=== PATIENT | female | born 1980 | race Hispanic/Latino ===

== ENCOUNTER 2020-09-19 08:25 | Emergency (ER) | payer SELFPAY ==
[2020-09-19] MEDS ORDERED: PROMETHAZINE HCL 25 MG/ML 1ML AMPULE IM ONE (08:26)
[2020-09-19] MEDS ORDERED: ACETAMINOPHEN EXTRA STRENGTH 500 MG TABLET ONE ×2 (09:39→17:06)
[2020-09-19 09:42] LABS: APPEARANCE,URINE Clear (CLEAR); BILIRUBIN,URINE Negative (NEGATIVE); COLOR,URINE Dark Yellow (YELLOW); GLUCOSE, URINE (UA) Negative (NEGATIVE); KETONES,URINE 15 mg/dL (NEGATIVE); LEUKOCYTE ESTERASE ,URINE Negative (NEGATIVE); NITRATE,URINE Negative (NEGATIVE); OCCULT BLOOD,URINE Moderate (NEGATIVE); PROTEIN,URINE POS 1+ mg/dL (NEGATIVE)
[2020-09-19] MEDS ORDERED: SODIUM CHLORIDE 0.9% 1000ML 1,000 ML IV ONE (09:42)
[2020-09-19 09:59] LABS: BACTERIA,URINE Moderate /HPF (None Seen)
[2020-09-19 10:01] LABS: BASOPHILS % (AUTO) 0.3 % (0.0-5.0); HEMATOCRIT 32.1 % (36-48); LYMPHOCYTES % (AUTO) 7.3 % (21.0-51.0); MEAN CORPUSCULAR HEMOGLOBIN 26.3 pg (27.0-33.0); MEAN CORPUSCULAR HGB CONC 32.4 g/dL (32.0-36.0); MEAN CORPUSCULAR VOLUME 81.3 fL (79-99); MONOCYTES % (AUTO) 5.4 % (3.0-13.0); NEUTROPHILS % (AUTO) 85.4 % (40.0-77.0); PLATELET COUNT (AUTO) 229 K/uL (130-400); RED BLOOD CELL COUNT(AUTO) 3.95 MIL/uL (4.00-5.50); RED CELL DISTRIBUTION WIDTH 12.6 % (11.0-15.5)
[2020-09-19 10:13] LABS: CREATININE 0.8 mg/dL (0.5-1.5); POTASSIUM 3.4 mmol/L (3.5-5.1)
[2020-09-19 10:18] LABS: ALBUMIN 3.4 g/dL (3.5-5.0); BILIRUBIN,TOTAL 0.6 mg/dL (0.2-1.0); TOTAL PROTEIN, SERUM 8.1 g/dL (6.0-8.3)
[2020-09-19] MEDS ORDERED: KETOROLAC TROMETHAMINE 30MG/ML ONE (11:11)
[2020-09-19] MEDS ORDERED: MECLIZINE HCL 25 MG TABLET ONE (11:11)
[2020-09-19] MEDS ORDERED: METHYLPREDNISOLONE SOD SUCC 125MG/2ML VIAL ONE (12:54)
== END 2020-09-19 17:12 | disposition home or self-care (01) ==
LOC: EDH 08:25
DX: A88.1 Epidemic vertigo (principal); B34.9 Viral infection, unspecified; Z20.828 Contact with and (suspected) exposure to other viral communicable diseases
CPT/HCPCS: 36415; 70450; 80053; 81001; 81025; 82550; 83605; 85025; 87088; 87426; 87804 ×2; 96361; 96365; 96375; 99285; J1885; J2550; J2930; J7030; U0003

== ENCOUNTER 2020-09-24 08:45 | Emergency (ER) | payer SELFPAY ==
[2020-09-24 09:19] LABS: BASOPHILS % (AUTO) 0.3 % (0.0-5.0); HEMATOCRIT 26.9 % (36-48); LYMPHOCYTES % (AUTO) 28.3 % (21.0-51.0); MEAN CORPUSCULAR HEMOGLOBIN 26.3 pg (27.0-33.0); MEAN CORPUSCULAR HGB CONC 33.5 g/dL (32.0-36.0); MEAN CORPUSCULAR VOLUME 78.7 fL (79-99); MONOCYTES % (AUTO) 5.7 % (3.0-13.0); NEUTROPHILS % (AUTO) 61.6 % (40.0-77.0); PLATELET COUNT (AUTO) 161 K/uL (130-400); RED BLOOD CELL COUNT(AUTO) 3.42 MIL/uL (4.00-5.50); RED CELL DISTRIBUTION WIDTH 13.6 % (11.0-15.5); WHITE BLOOD COUNT (AUTO) 6.3 K/uL (4.8-10.8)
[2020-09-24] MEDS ORDERED: SODIUM CHLORIDE 0.9% 1000ML 1,000 ML IV ONE ×2 (09:21→10:34)
[2020-09-24] MEDS ORDERED: ACETAMINOPHEN EXTRA STRENGTH 500 MG TABLET ONE (09:21)
[2020-09-24 09:37] LABS: APPEARANCE,URINE Clear (CLEAR); BILIRUBIN,URINE Negative (NEGATIVE); COLOR,URINE Dark Yellow (YELLOW); GLUCOSE, URINE (UA) Negative (NEGATIVE); KETONES,URINE >=80 mg/dL (NEGATIVE); LEUKOCYTE ESTERASE ,URINE Small (NEGATIVE); NITRATE,URINE Negative (NEGATIVE); OCCULT BLOOD,URINE Large (NEGATIVE); PROTEIN,URINE POS 2+ mg/dL (NEGATIVE)
[2020-09-24 09:40] LABS: ALBUMIN 2.6 g/dL (3.5-5.0); BILIRUBIN,TOTAL 0.7 mg/dL (0.2-1.0); CREATININE 0.7 mg/dL (0.5-1.5); TOTAL PROTEIN, SERUM 7.5 g/dL (6.0-8.3)
[2020-09-24 09:41] LABS: POTASSIUM 2.9 mmol/L (3.5-5.1)
[2020-09-24 09:50] LABS: BACTERIA,URINE Rare /HPF (None Seen); SQUAMOUS EPITHELIAL CELL,UR Rare /HPF (0-2)
[2020-09-24] MEDS ORDERED: POTASSIUM BICARB/CIT AC 25 MEQ TABLET.EFF ONE (09:56)
[2020-09-24 10:49] LABS: AMPHET/METH SCREEN,URINE NEGATIVE (NEGATIVE); BARBITURATE SCREEN, URINE NEGATIVE (NEGATIVE); BENZODIAZEPINES SCREEN,URINE NEGATIVE (NEGATIVE); CANNABINOID SCREEN,URINE NEGATIVE (NEGATIVE); COCAINE SCREEN,URINE NEGATIVE (NEGATIVE); OPIATE SCREEN,URINE NEGATIVE (NEGATIVE); PHENCYCLIDINE SCREEN,URINE NEGATIVE (NEGATIVE)
== END 2020-09-24 15:57 | disposition home or self-care (01) ==
LOC: EDH 08:45
DX: R11.0 Nausea (principal); R50.9 Fever, unspecified; Z79.899 Other long term (current) drug therapy
CPT/HCPCS: 36415; 76700; 80053; 80305; 81001; 84702; 85025; 87040 ×2; 87088; 96360; 96361; 99284; J7030 ×2

== ENCOUNTER 2022-12-29 19:34 | Emergency (ER) | payer OTHER ==
[~2022-12-29] VITALS: Ht 157.5 cm; Wt 76.2 kg
[2022-12-29 20:38] LABS: BASOPHILS % (AUTO) 0.5 % (0.0-5.0); EOSINOPHILS % (AUTO) 1.1 % (0.0-8.0); HEMATOCRIT 30.5 % (36-48); LYMPHOCYTES % (AUTO) 25.9 % (21.0-51.0); MEAN CORPUSCULAR HEMOGLOBIN 18.2 pg (27.0-33.0); MEAN CORPUSCULAR HGB CONC 27.9 g/dL (32.0-36.0); MEAN CORPUSCULAR VOLUME 65.3 fL (79-99); MONOCYTES % (AUTO) 6.9 % (3.0-13.0); NEUTROPHILS % (AUTO) 65.3 % (40.0-77.0); PLATELET COUNT (AUTO) 464 K/uL (130-400); RED BLOOD CELL COUNT(AUTO) 4.67 MIL/uL (4.00-5.50); RED CELL DISTRIBUTION WIDTH 19.9 % (11.0-15.5); WHITE BLOOD COUNT (AUTO) 8.8 K/uL (4.8-10.8)
[2022-12-29 20:39] LABS: APPEARANCE,URINE CLEAR (CLEAR); BILIRUBIN,URINE NEGATIVE (NEGATIVE); COLOR,URINE COLORLESS (YELLOW); GLUCOSE, URINE (UA) NEGATIVE (NEGATIVE); KETONES,URINE NEGATIVE (NEGATIVE); LEUKOCYTE ESTERASE ,URINE 250 Leu/uL (NEGATIVE); NITRATE,URINE NEGATIVE (NEGATIVE); PH,URINE 6.5 (5.0-8.0); PROTEIN,URINE NEGATIVE (NEGATIVE); UROBILINOGEN,URINE 0.2 mg/dL (0.2-1.0)
[2022-12-29 20:43] LABS: BACTERIA,URINE RARE /HPF (None Seen); SQUAMOUS EPITHELIAL CELL,UR FEW /HPF (0-2)
[2022-12-29 20:44] LABS: HCG,QUALITATIVE URINE NEGATIVE (NEGATIVE)
[2022-12-29 20:48] LABS: CREATININE 0.5 mg/dL (0.5-1.5); POTASSIUM 3.8 mmol/L (3.5-5.1)
[2022-12-29 20:52] LABS: ALBUMIN 3.7 g/dL (3.5-5.0); TOTAL PROTEIN, SERUM 8.2 g/dL (6.0-8.3)
[2022-12-29] MEDS ORDERED: KETOROLAC 30MG VIAL (30MG/ML) IM ONE (22:00)
[2022-12-29] MEDS ORDERED: CEPH500B PO (23:08)
[2022-12-29] MEDS ORDERED: TAMS-1 PO (23:08)
[2022-12-29] MEDS ORDERED: ONDANSETRON 4MG INJ IVP ONE (23:30)
[2022-12-29] MEDS ORDERED: CEFTRIAXONE 1G VIAL IVP ONE (23:30)
[2022-12-29] MEDS ORDERED: MORPHINE 4 MG SYG IM ONE (23:30)
[2022-12-29 23:42] VITALS: BP 137/85
== END 2022-12-29 23:55 | disposition home or self-care (01) ==
LOC: EDH 19:34
DX: N28.1 Cyst of kidney, acquired (principal); N39.0 Urinary tract infection, site not specified; N20.0 Calculus of kidney
CPT/HCPCS: 99285; 74176; 96374; 96375; 80053; 85025; 87088; 81001; 81025; 36415; 96372 ×2; J0696; J2405; J2270; J1885

== ENCOUNTER 2025-11-05 02:54 | Inpatient (IN) | payer BC, OTHER ==
[~2025-11-05] VITALS: Ht 157.5 cm; Wt 73.0 kg
--- NOTE | 2025-11-05 03:19 | ERN ---
ED Note History of Present Illness Stated Complaint: ABD PAIN Chief Complaint: Abdominal Pain Time Seen by MD: 02:57 Dictation: This is a 45-year-old female who presented to the emergency room with complaints of right flank pain that started about an hour prior to the presentation. Apparently she began experiencing pain which was radiating to the right upper abdomen as well as lower abdomen from the flank area. Had similar pain before when she was told she had kidney stones. She denied any hematuria. She did admit to nausea but no diarrhea. Her last BM was an hour prior to the presentation. No vomitings. No reflux symptoms. She took Tylenol at 2:00 a.m .. She reports having a EGD and colonoscopy on 11/02/2025 in the only thing they found was hemorrhoids. Temperature 97.6 pulse 69 respirations 20 blood pressure 168/80 with a pulse oximetry of 100% on room air Allergies: Coded Allergies: morphine (Unverified Allergy, Unknown, HIVES, 11/05/25) Home Meds Active Scripts Tamsulosin HCl (Flomax) 0.4 Mg Cap.er.24h, 0.4 MG PO DAILY for 30 Days, #45 CAPSULE. Prov:SUNITA FARLEY 12/29/22 Cephalexin Monohydrate (Keflex) 500 Mg Cap, 500 MG PO QID for 7 Days, #28 CAP Prov:SUNITA FARLEY 12/29/22 Past Medical History Past Medical History: No Pertinent History Surgical History: None Family History: Negative LMP: Oct 30, 2025 RN Note Reviewed/Agreed w/PFSH: Yes Review of System Dictation Constitutional: Negative for fever,chills, and weight loss Eyes: Negative for injury, pain,redness, and discharge ENT: Negative for injury,pain or swelling Cardiovascular: Negative for chest pain, palpitations, and edema Respiratory: Negative for shortness of breath, cough, and wheezing, Abdomen/GI: Negative for abdominal pain, nausea, vomiting, diarrhea, and constipation Back: Negative for injury and pain positive for right flank pain : Negative for injury, bleeding and discharge MS/Extremity: Negative for injury and deformity Skin: Negative for rash, and discoloration Neuro: Negative for headache, weakness, numbness, tingling, and seizure Psych: Negative for suicide ideation, homicidal ideation, and hallucinations Initial Vital Sign VS Vital Signs Date Time Temp Pulse Resp B/P (MAP) Pulse Ox O2 Delivery O2 Flow Rate FiO2 11/05/25 02:55 97.5 69 20 168/80 100 Room Air 11/05/25 03:07 0 21 Physical Exam Dictation General: awake, alert, NAD Head/Face: Normocephalic, atraumatic Eyes: PERRL, EOMI, vision at baseline ENT: oral cavity clear, TMs clear, no signs of infection Neck: Trachea midline, supple, no nuchal rigidity Cardiovascular: RRR, normal S1/S2, No MRGs, no JVD Respiratory: CTAB, no respiratory distress, No rales or wheezes Abdomen: Soft, non-tender, non-distended, normal bowel sounds, no guarding or rebound. Skin: Warm, dry, normal turgor, no rash MS/Extremity: Pulses equal, no cyanosis, neurovascular intact, FROM Neuro: COAx4, GCS 15, strength 5/5, CN 2-12 intact, normal cerebellar exam, normal gait, Psych: Normal behavior, mood, and affect normal Extremities-trace edema without any palpable cords, Homans sign is negative Results (Laboratory/Radiology) Laboratory/Radiology Laboratory Tests Test 11/05/25 03:35 11/05/25 03:45 11/05/25 05:20 White Blood Count 9.6 K/uL (4.8-10.8) Red Blood Count 3.31 MIL/uL (4.00-5.50) L Hemoglobin 6.5 g/dL (12.0-16.0) *L Hematocrit 22.7 % (36-48) L Mean Corpuscular Volume 68.6 fL (79-99) L Mean Corpuscular Hemoglobin 19.6 pg (27.0-33.0) L Mean Corpuscular Hemoglobin Concent 28.6 g/dL (32.0-36.0) L Red Cell Distribution Width 17.3 % (11.0-15.5) H Platelet Count 496 K/uL (130-400) H Mean Platelet Volume 9.4 fL (7.5-10.5) Immature Granulocyte % (Auto) 0.6 % (0-1) Neutrophils (%) (Auto) 68.9 % (40.0-77.0) Lymphocytes (%) (Auto) 21.5 % (21.0-51.0) Monocytes (%) (Auto) 7.4 % (3.0-13.0) Eosinophils (%) (Auto) 1.3 % (0.0-8.0) Basophils (%) (Auto) 0.3 % (0.0-5.0) Neutrophils # (Auto) 6.6 K/uL (1.8-7.7) Lymphocytes # (Auto) 2.1 K/uL (1.0-4.8) Monocytes # (Auto) 0.7 K/uL (0.1-1.0) Eosinophils # (Auto) 0.12 K/uL (0.00-0.70) Basophils # (Auto) 0.03 K/uL (0.00-0.20) Absolute Immature Granulocyte (auto 0.06 K/uL (0-1) Nucleated Red Blood Cells 0.0 % (0.0-0.19) Red Blood Cell Morphology See comments Sodium Level 139 mmol/L (136-145) Potassium Level 3.8 mmol/L (3.5-5.1) Chloride Level 104 mmol/L (101-111) Carbon Dioxide Level 23 mmol/L (21-32) Blood Urea Nitrogen 12 mg/dL (7-18) Creatinine 0.8 mg/dL (0.5-1.0) Glomerular Filtration Rate Calc 91 mL/min (>90) Random Glucose 113 mg/dL (70-105) H Total Calcium 8.6 mg/dL (8.5-10.1) Lipase 36 U/L (16-77) Urine Color LIGHT-YELLOW (YELLOW) Urine Appearance CLOUDY (CLEAR) H Urine pH 6.5 (5.0-8.0) Urine Specific [place] 1.021 (1.001-1.031) Urine Protein 20 mg/dL (NEGATIVE) H Urine Glucose (UA) NEGATIVE mg/dL (NEGATIVE) Urine Ketones NEGATIVE mg/dL (NEGATIVE) Urine Occult Blood LARGE (NEGATIVE) H Urine Nitrate NEGATIVE (NEGATIVE) Urine Bilirubin NEGATIVE mg/dL (NEGATIVE) Urine Urobilinogen 0.2 mg/dL (0.2-1.0) Urine Leukocyte Esterase 25 Varun/uL (NEGATIVE) H Urine RBC TNTC /HPF (0-1) H Urine WBC 6-10 /HPF (0-1) H Urine Squamous Epithelial Cells FEW /HPF (0-2) Urine Bacteria RARE /HPF (None Seen) Urine HCG, Qualitative NEGATIVE (NEGATIVE) Prothrombin Time 10.8 SEC (9.6-11.6) Prothromb Time International Ratio 1.02 (0.85-1.15) Activated Partial Thromboplast Time 23.1 SEC (26.3-35.5) L Labs Reviewed?: Yes ED Course ED Course Orders Procedure Category Date Status Time Vital Signs Per CPOE 11/05/25 Transmitted Routine 03:16 Saline Lock Iv CPOE 11/05/25 Transmitted 03:16 Cbc With Differential LAB 11/05/25 Complete 03:16 Lipase LAB 11/05/25 Complete 03:16 Urinalysis Profile LAB 11/05/25 Complete 03:16 Basic Metabolic Panel LAB 11/05/25 Complete 03:16 ,Urine Test LAB 11/05/25 Complete 03:16 0.9%Nacl 1000ml (Ns PHA 11/05/25 Complete 1000ml) 03:30 Ketorolac PHA 11/05/25 Complete Tromethamine 30mg/Ml 03:30 Ondansetron 4mg Inj PHA 11/05/25 Complete (Zofran 4mg Inj) 03:30 Culture Urine CIERRA 11/05/25 In Process 04:19 Morphine 4mg Syg PHA 11/05/25 Complete (Morphine 4mg Syg) 05:00 Pantoprazole 40mg Inj PHA 11/05/25 Complete (Protonix 40mg Inj 05:00 Type And Screen BBK 11/05/25 In Process 04:33 Hydromorphone 0.5mg PHA 11/05/25 Complete Syg (Dilaudid 0.5mg 05:00 Ct Abd/Pel Wo Con CT 11/05/25 Taken Renal/Appy 04:40 Edm Admit Bridge Order ADM 11/05/25 Transmitted 04:55 Ceftriaxone 1g Vial PHA 11/05/25 Complete (Rocephine 1g Inj) 05:00 Admit Orders ADM 11/05/25 Transmitted 05:46 Occult Blood Stool LAB 11/05/25 Logged Single Only 05:49 Iron Panel With %Sat LAB 11/05/25 In Process 05:49 Iron Serum LAB 11/05/25 In Process 05:49 Reticulocyte Count LAB 11/05/25 Logged Automated 05:49 Pathology Smear Review LAB 11/05/25 Logged 05:49 Gastroenterology CONPHYSVC 11/05/25 Transmitted Consult 08:00 Pt And Ptt LAB 11/05/25 Complete 05:50 Magnesium LAB 11/05/25 In Process 05:50 Phosphorus LAB 11/05/25 In Process 05:50 Basic Metabolic Panel LAB 11/06/25 Verified 04:00 Cbc With Differential LAB 11/06/25 Verified 04:00 Hemoglobin And LAB 11/05/25 Logged Hematocrit 09:30 Hemoglobin And LAB 11/05/25 Logged Hematocrit 15:30 Hemoglobin And LAB 11/05/25 Logged Hematocrit 21:30 Hemoglobin And LAB 11/06/25 Verified Hematocrit 03:30 Hemoglobin And LAB 11/06/25 Verified Hematocrit 09:30 Activity: Ad Christianne CPOE 11/05/25 Transmitted 05:50 Apply Knee High Teds CPOE 11/05/25 Transmitted 05:50 Apply Scds CPOE 11/05/25 Transmitted 05:50 Condition: CPOE 11/05/25 Transmitted 05:50 I&O Q Shift CPOE 11/05/25 Transmitted 05:50 Npo Except For Meds CPOE 11/05/25 Transmitted 05:50 Nurse To Enter Home CPOE 11/05/25 Transmitted Medication 05:50 Oxygen By Nc/Pulse Ox CPOE 11/05/25 Transmitted 05:50 Telemetry Monitoring CPOE 11/05/25 Transmitted 05:50 Vital Signs(Adult CPOE 11/05/25 Transmitted Hospitalist) 05:50 Advance Diet As CPOE 11/05/25 Transmitted Tolerated To: 05:50 0.9%Nacl 1000ml (Ns PHA 11/05/25 In Process 1000ml) 06:00 Acetaminophen 325 Tab PHA 11/05/25 In Process (Tylenol 325mg Tab 06:00 Hydralazine 20mg Inj PHA 11/05/25 In Process (Apresoline 20mg In 06:00 Lactulose 20 Gm/30 Ml PHA 11/05/25 In Process Udcup (Constulose 06:00 Morphine 4mg Syg PHA 11/05/25 In Process (Morphine 4mg Syg) 06:00 Ondansetron 4mg Inj PHA 11/05/25 In Process (Zofran 4mg Inj) 06:00 Ceftriaxone 1g Vial PHA 11/06/25 In Process (Rocephine 1g Inj) 09:00 12 Lead Ekg Tracing- EKG 11/05/25 Complete Technical 05:57 Chest 1vw RAD 11/05/25 Taken 05:57 Lactate Dehydrogenase LAB 11/05/25 In Process 05:20 Current Medications Medications (Trade) Dose Ordered Sig/Shahrzad Route PRN Reason Start Time Stop Time Status Last Admin Dose Admin Ceftriaxone Sodium (ROCEphine 1G INJ) 1 gm ONCE ONCE IVPB 11/05/25 05:00 11/05/25 05:01 DC 11/05/25 05:24 Hydromorphone HCl (DiLAUDid 0.5MG INJ) 0.5 mg ONCE ONCE IVP 11/05/25 05:00 11/05/25 05:01 DC 11/05/25 04:45 Ketorolac Tromethamine (toRADol) 30 mg ONCE ONCE IVP 11/05/25 03:30 11/05/25 03:31 DC 11/05/25 03:30 Morphine Sulfate (morPHINE 4MG SYG) 4 mg ONCE ONCE IVP 11/05/25 05:00 11/05/25 04:40 DC Ondansetron HCl (zoFRAN 4MG INJ) 4 mg ONCE ONCE IVP 11/05/25 03:30 11/05/25 03:31 DC 11/05/25 03:30 Pantoprazole Sodium (PROTonix 40MG INJ) 80 mg ONCE ONCE IVP 11/05/25 05:00 11/05/25 05:01 DC 11/05/25 05:00 Sodium Chloride 1,000 ml @ 0 mls/hr ONCE ONCE IV 11/05/25 03:30 11/05/25 03:31 DC 11/05/25 03:30 Vital Signs Date Time Temp Pulse Resp B/P (MAP) Pulse Ox O2 Delivery O2 Flow Rate FiO2 11/05/25 06:52 98.1 68 18 104/64 98 Room Air* 0 21 11/05/25 05:33 98.1 79 18 116/67 100 Room Air* 0 21 11/05/25 03:07 98.2 71 18 139/85 100 Room Air* 0 21 11/05/25 02:55 97.5 69 20 168/80 100 Room Air Medical Decision Making MDM Differential diagnosis: Renal colic, pyelonephritis worsen, hydroureter and hydronephrosis, lumbar pathology including lumbago, paraspinal muscle spasms This is a 45-year-old female who presented to the emergency room with complaints of right flank pain that started about an hour prior to the presentation. Apparently she began experiencing pain which was radiating to the right upper abdomen as well as lower abdomen from the flank area. Had similar pain before when she was told she had kidney stones. She denied any hematuria. She did admit to nausea but no diarrhea. Her last BM was an hour prior to the presentation. No vomitings. No reflux symptoms. She took Tylenol at 2:00 a.m.. She reports having a EGD and colonoscopy on 11/02/2025 in the only thing they found was hemorrhoids. Temperature 97.6 pulse 69 respirations 20 blood pressure 168/80 with a pulse oximetry of 100% on room air 4:12 a.m. labs are still pending 4:32 a.m. CBC showed a white count of 9.6 hemoglobin 6.5 platelets 496. BNP 7 is with a normal limits. Urinalysis showed mild leuko esterase and some WBCs + RBCs. I have recommended admission to the hospital for severe anemia with a hemoglobin of 6.5 patient needs at least a unit of transfusion. Due to intractable pain in the right flank area I requested CT scan of the abdomen and pelvis which is pending at the time of admission, patient was nervous about her severe anemia I answered all her questions and reassured her and she is agreeable Patient accepted by Toi Marks, mid-level provider for [facility] hospitalist group for admission and further management Rationale: Tests considered and ordered secondary to shared decision making incl ude: labs, ECG and radiology Previous outside records reviewed: Old ER visits. Risk of complication and/or morbidity or mortality of patient management: None Medications-Per medication reconciliation Need for hospitalization: Patient does meet criteria for hospitalization. Need for emergency major/minor surgery: No There are no social concerns with this patient. Prescription drug management Prescriptions will include symptomatic care Patient's prior external medical records from other ER visits were reviewed by me as indicated. Prior testing and results from previous visits were reviewed. Prior tests were taken into account with medical decision making and resource utilization, independent historian/historians were used to obtain complete medical history. I independently interpreted the test that were performed, results were reviewed by me and considered findings on radiology if ordered. Medical management and examination interpretation discussions were had by me with other qualified healthcare professionals as indicated for the patient's care. Problem List Problem List: (1) GI bleed (2) Severe anemia (3) UTI (urinary tract infection) DX & DISP Disposition: Inpatient Departure Impression: Primary Impression: GI bleed Additional Impressions: Severe anemia, UTI (urinary tract infection) Condition: Stable Additional Instructions: Patient was informed of all the diagnostic labs and procedures conducted in the emergency room today and demonstrated understanding of the results. I personally reviewed and interpreted all the diagnostic exams performed in the ER today. The patient will be admitted to the hospital for further treatment and evaluation. Disposition-admit to facility Condition-stable/guarded Course-uncertain at this time Pain status-decreased Assessment-exam unchanged Admission Certification- I certify that the patients status is appropriate and is based on my best clinical judgment and the patient's condition as documented in the medical records Referrals: SELF,REFERRAL (PCP) BAUDILIO FOREMAN MD Nov 05, 2025 03:19
[2025-11-05] MEDS: 0.9%NACL 1000ML 1,000 ML IV ONE (03:30)
[2025-11-05 04:10] LABS: IMMATURE GRANULOCYTE ABSOLUTE 0.06 K/uL (0-1); NUCLEATED RED BLOOD CELLS 0.0 % (0.0-0.19); PLATELET COUNT (AUTO) 496 K/uL (130-400); RED BLOOD CELL COUNT(AUTO) 3.31 MIL/uL (4.00-5.50); RED CELL DISTRIBUTION WIDTH 17.3 % (11.0-15.5); WHITE BLOOD COUNT (AUTO) 9.6 K/uL (4.8-10.8)
[2025-11-05 04:11] LABS: APPEARANCE,URINE CLOUDY (CLEAR); GLUCOSE, URINE (UA) NEGATIVE (NEGATIVE); LEUKOCYTE ESTERASE ,URINE 25 Leu/uL (NEGATIVE); NITRATE,URINE NEGATIVE (NEGATIVE); OCCULT BLOOD,URINE LARGE (NEGATIVE)
[2025-11-05 04:14] LABS: ADD UA MICROSCOPIC YES
[2025-11-05 04:18] LABS: HCG,QUALITATIVE URINE NEGATIVE (NEGATIVE); SQUAMOUS EPITHELIAL CELL,UR FEW /HPF (0-2)
[2025-11-05 04:23] LABS: CREATININE 0.8 mg/dL (0.5-1.0); GLOMERULAR FILTR. RATE CALC 91.0 mL/min (>90); GLUCOSE,RANDOM 113.0 mg/dL (70-105); SODIUM SERUM 139.0 mmol/L (136-145); UREA NITROGEN, BLOOD 12.0 mg/dL (7-18)
--- NOTE | 2025-11-05 05:53 | HP ---
History of Present Illness Reason for Visit: abdominal pain History of Present Illness Ms. Lindsay is a 45-year-old female that was seen and examined today on 11/05/2025. Patient reports that she came to the emergency department with a chief complaint of abdominal pain. Onset is two days ago. Location is right lower quadrant. Duration is on and off. Character is described as sharp. There was no alleviating factors. Symptoms are aggravated after having a colonoscopy and EGD two days ago where she was diagnosed with hemorrhoids. Patient reports associated nausea and right flank pain. In the emergency department hemoglobin 6.5, hematocrit 22.7, chemistry unremarkable, urinalysis positive for leukocyte esterase and WBCs 6-10 per high-powered microscopy field. A CT scan has been ordered in the emergency department however patient has been taking for the CT scan and results therefore not available. Also no stool sample has been collected or sent to lab however there is high suspicion for GI bleed given anemia and recent EGD/colonoscopy. Past Medical History ADDITIONAL PAST MEDICAL HISTORY: [Denies] SOCIAL HISTORY: [Negative for smoking, alcohol use, drug use] SURGICAL HISTORY: [EGD/colonoscopy] Review of Systems General: No Fever, No Chills, No Night Sweats, No Fatigue, No Malaise, No Appetite, No Other HEENT: No Head Aches, No Visual Changes, No Eye Pain, No Ear Pain, No Dysphasia, No Sinus Congestion, No Post Nasal Drip, No Sore Throat, No Other Pulmonary: No Dyspnea, No Cough, No Pleuritic Chest Pain, No Other Cardiovascular: No: Chest Pain, Palpitations, Orthopnea, Paroxysmal Noc. Dyspnea, Edema, Lt Headedness, Other Gastrointestinal: Nausea, Abdominal Pain; No: Vomiting, Diarrhea, Constipation, Melena, Hematochezia, Other Genitourinary: No Dysuria, No Frequency, No Incontinence, No Hematuria, No Retention, No Other Musculoskeletal: back pain; No: other, neck pain, shoulder pain, arm pain, hand pain, leg pain, foot pain Skin: No Urticaria, No Rash, No Other Neurological: No: Weakness, Numbness, Incoordination, Change in speech, Confusion, Seizures, Other Allergies: Coded Allergies: No Known Drug Allergies (Unverified Allergy, Unknown, 09/19/20) Scheduled Cephalexin Monohydrate (Keflex), 500 MG PO QID Tamsulosin HCl (Flomax), 0.4 MG PO DAILY Exam Vital Signs Vital Signs Date Time Temp Pulse Resp B/P (MAP) Pulse Ox O2 Delivery O2 Flow Rate FiO2 11/05/25 05:33 98.1 79 18 116/67 100 Room Air* 0 21 General Appearance: Alert, Oriented X3, Cooperative, mild distress HEENT: Atraumatic, PERRLA, EOMI Respiratory: Clear to auscultation, Normal air movement, NL respiratory effort Cardiovascular: Regular rate, Regular rhythm, Normal S1, Normal S2 Abdominal: Normal bowel sounds, Soft, No tenderness Extremities: No edema Skin: No significant lesion Neuro: Normal gait, Normal speech, Strength at 5/5 X4 ext, Sensation intact, Cranial nerves 3-12 NL Psych/Mental Status: Mental status NL, Mood NL, Thoughts/Content NL Assessment/Plan ASSESSMENT: [ Anemia, POA Urinary tract infection, POA Suspected GI bleed, POA Intractable abdominal pain, POA ] PLAN: [ Admit patient to medical floor as inpatient status. Check iron panel, follow up with the results Check serum ferritin, follow up with the results Check LDH, reticulocyte count, peripheral smear, follow up with the results Monitor labs Transfuse packed red blood cells for hemoglobin less than 7 mg/dL Patient will be followed by Gastroenterology Service. Keep patient NPO. Advance diet if no indicated procedures and a full pain with gastroenterology service. IV fluid maintenance therapy 0.9% NS at 100 mL/HR. As needed analgesia with morphine. Check preprocedure labs, CBC, BMP, magnesium, phosphorus, PTT, UA, type and screen, EKG, CXR Monitor hemoglobin and hematocrit every 6 hours Consider starting Protonix and Sandostatin drip per hospital protocol if stool was positive for occult blood Check stool sample for occult blood, follow up with the results Follow up with the results of CT of abdomen and pelvis further orders as necessary depending on findings GI prophylaxis, famotidine. Change to Protonix if patient is positive for GI bleed. DVT prophylaxis, Kevin's and SCDs avoid anticoagulation at this time due to anemia and suspected GI bleed ADVANCED CARE PLANNING 1. Which of the following were discussed? Hospice Care - Yes Therapeutic options - yes Advance Directives - Yes - Other discussions - patient wishes to remain a full code 2. Discussed with who? Patient 3. Voluntary nature of this service was explained to the patient? Yes 4. Amount of time spent - ___16 minutes____ 5. Reviewed by Physician? (if this service was performed by NPP) Yes This document was generated in part using voice recognition software, occasional wrong word or sound alike substitutions may have occurred due to the inherent limitations of voice recognition software. Read the chart carefully and recognize using context, where the substitutions have occurred. Although every effort was made to edit the content, chip frier and typing errors may occur ATTESTATION BY PHYSICIAN I have seen and examined the patient. I reviewed the documentation, medical decision making, and treatment plan as noted by the mid-level provider above. I agree with the findings and plan of care.] HUMBERTO DIGGS [facility] Nov 05, 2025 05:53
[2025-11-05] MEDS ORDERED: LACTULOSE 20 GM/30 ML UDCUP PO PRN (06:00)
[2025-11-05] MEDS: 0.9%NACL 1000ML 1,000 ML IV SCH (06:02)
--- NOTE | 2025-11-05 06:23 | EKG ---
[facility] Test Date: 2025-11-05 Test Time: 06:20:37 Pat Name: DUSTIN VINCENT Department: EDHIP Room: 315 Gender: F [employer] Technician: [id number] : 1980 Requested By: HUMBERTO DIGGS Order Number: [id number] Reading MD: Jermaine Reyes Measurements Intervals [place] Rate: 67 P: 7 [place]: 168 QRS: 15 QRSD: 99 T: 3 QT: 410 QTc: 433 Interpretive Statements Sinus rhythm No previous ECG available for comparison Electronically Signed On 11-05-2025 09:37:55 ARBORICULTURIST by Jermaine Reyes Please click the below link to view image of tracing.
--- NOTE | 2025-11-05 06:32 | NUR ---
REPORT GIVEN TO NURSE EDYTA LEON, WILL GIVE REPORT TO INCOMING NURSE, PENDING TO TRANSFER PATIENT TO ROOM 315 WILL CONT TO MONITOR
[2025-11-05 06:46] LABS: INR 1.02 (0.85-1.15)
[2025-11-05 07:01] LABS: % IRON SATURATION 1.5 % (22-44); IRON, SERUM 7.0 mcg/dL (50-170)
[2025-11-05 07:02] LABS: LACTATE DEHYDROGENASE 167.0 U/L (81-234); PHOSPHORUS 3.1 mg/dL (2.5-4.9)
--- NOTE | 2025-11-05 07:18 | NUR ---
ADMISSION PATIENT ARRIVED FROM ER DEPARTMENT VIA BED. PATIENT CURRENTLY STATES TO NOT HAVE PAIN AT THIS TIME. PLACED ON NS 100ML/HR, AND SCDS. BED WHEELS LOCKED, CALL LIGHT IN REACH, AND ENCOURAGED PATIENT TO MAKE NURSE AWARE OF PAIN.
--- NOTE | 2025-11-05 07:43 | HMCIMG ---
EXAMINATION: CT Abdomen and Pelvis without intravenous contrast. CLINICAL HISTORY: Patient presents with right flank pain and right lower abdominal pain. TECHNIQUE: Axial CT of the abdomen and pelvis without intravenous contrast. Multiplanar reformations were generated and reviewed. CONTRAST: No intravenous contrast. COMPARISON: None provided. FINDINGS: LUNG BASES: Subsegmental atelectatic opacities in the right lower lung. LIVER: Unremarkable in size and density. No focal hepatic lesion. GALLBLADDER AND BILE DUCTS: Unremarkable with no radioopaque gallstones or wall thickening. No biliary ductal dilatation. PANCREAS: Unremarkable in appearance. No calcifications. SPLEEN: Unremarkable in size and density. ADRENAL GLANDS: Unremarkable. KIDNEYS, URETERS, AND BLADDER: Mild hydroureteronephrosis in the right kidney. A calculus measuring approximately 0.65 x 0.4 x 0.5 cm is in the right mid-ureter, just proximal to the iliac crossing level. Tiny early forming calculi/concretions measuring 1 to 2mm in the bilateral kidneys. A hypodense cystic lesion measuring approximately 3.4 x 4.4 cm in the interpolar region of the right kidney. A small hypodense cystic lesion measuring 1.6 x 1.1 cm is present in the lower pole of the left kidney. The urinary bladder is normal. STOMACH AND BOWEL: Unremarkable appearance of the stomach and bowel loops. No bowel wall thickening or obstruction. The colon is fecal loaded predominantly on the right side. APPENDIX: No CT features of acute appendicitis. PERITONEUM: No free fluid or free air. LYMPH NODES: No retroperitoneal or pelvic lymphadenopathy. REPRODUCTIVE: The uterus and adnexa are normal. VASCULATURE: The aorta is normal in caliber. No gross aneurysm. BONES: Minor spondylotic changes are present in the visualized spine. Otherwise unremarkable. No acute or aggressive osseous abnormality. IMPRESSION: Right mid-ureteral calculus measuring 0.65 x 0.4 x 0.5 cm with mild right hydroureteronephrosis. Tiny bilateral non-obstructive renal calculi/concretions. Hypodense lesions measuring 3.4 x 4.4 cm in the interpolar region of the right kidney and 1.6 x 1.1 cm in the lower pole of the left kidney, probably a cyst. suggested contrast CT /US correlation. Fecal loaded colon, predominantly on the right side. /[place]
--- NOTE | 2025-11-05 08:30 | NUR ---
PATIENT REPORTED ACUTE PAIN TO ABDOMEN. CALLED ELZBIETA FARNSWORTH. NEW ORDERS FOR DILAUDID 0.5 MG IVP Q4H PRN.
--- NOTE | 2025-11-05 08:40 | NUR ---
PATIENT STATED, "MY PAIN DISAPPEARED, I DON'T WANT PAIN MEDICATION ANYMORE." ELZBIETA RETREAD TECHNICIAN AWARE OF PAIN MEDICATION NOT GIVEN PER PATIENT'S REFUSAL.
[2025-11-05 08:46] VITALS: BP 117/71; PULSE 67; RESP 18; TEMP 98.3
[2025-11-05 11:36] VITALS: BP 109/66; PULSE 65; RESP 18; TEMP 98
--- NOTE | 2025-11-05 12:11 | NUR ---
PCCU BED spoke with Mary Swift RN, boilerhouse mechanic, requested PCCU bed per Dr. Briscoe orders.
[2025-11-05] MEDS: LACTULOSE 20 GM/30 ML UDCUP PO ONE (12:33)
--- NOTE | 2025-11-05 13:00 | NUR ---
BLOOD TRANSFUSION BLOOD TRANSFUSION STARTED AT THIS TIME. VS: T 97.9, BP 117/79, HR 69, O2 100%. NO REACTION NOTED AT THIS TIME.
--- NOTE | 2025-11-05 13:06 | NUR ---
REPORT GIVEN TO KAREN CALLEJAS RN REGARDING PATIENT'S TRANSFER TO PCCU.
--- NOTE | 2025-11-05 13:15 | NUR ---
pt was received from 315 and at present is awake alert and in no apparent distress and blood infusing. pt was advised of plan of care and updated information from the report given.
--- NOTE | 2025-11-05 15:06 | HMCIMG ---
EXAM: CR Chest, 1 View. CLINICAL HISTORY: pre procedural COMPARISON: None provided. FINDINGS: LUNGS: There is no mass, infiltrate, or acute pulmonary abnormality. PLEURAL SPACES: No pleural effusion or pneumothorax. MEDIASTINUM: Cardiac size and mediastinal contours are within normal limits. BONES: No aggressively appearing osseous lesion was seen. MISCELLANEOUS: Multiple external metallic artifacts are projecting over the chest, consistent with clothing, limiting evaluation in these regions. IMPRESSION: 1. No acute cardiopulmonary findings. /[place]
[2025-11-05 16:00] VITALS: BP 118/70; PULSE 61; RESP 16; TEMP 98.2
--- NOTE | 2025-11-05 17:13 | PN ---
[facility] PROGRESS NOTE Date of Service: Nov 05, 2025 Time of Service: 16:54 SUBJECTIVE: [45-year-old female presented to the ED with right lower quadrant (RLQ) abdominal pain. She underwent elective colonoscopy and EGD last (11/03/25) at [facility] by Dr. Lester Duncan. She was asymptomatic immediately post- procedure and discharged home. Yesterday, she developed RLQ pain, prompting her ED visit. She reports intermittent pain, currently localized to the RLQ. No report of melena or hematochezia. She has a history of anemia; todays labs revealed significant drop in H/H to 6.5/22.7 (previously higher). She denies fevers, chills, or urinary symptoms. Review of EGD (11/03/25): - Duodenum: Normal - Z-line: Regular at GE junction - Stomach: Localized minimal erythema (non-erosive gastritis), bilious fluid in fundus/body - Cardia/fundus: Normal - Biopsies: Taken from areas of erythema - Impression: Non-erosive gastritis, otherwise normal exam - Recommendation: Await pathology, continue current medications Review of Colonoscopy (11/03/25): - Colon/Sigmoid: Continuous area of non-bleeding ulcerated mucosa with stigmata of recent bleeding; biopsied - Cecum: Localized mild inflammation (loss of vascularity, granularity, erythema); biopsied - Terminal ileum: Normal; biopsied - Random biopsies: Ascending, transverse, and ascending colon (normal-appearing mucosa) - Internal hemorrhoids: Medium-sized - Impression: Mucosal ulceration in colon/sigmoid (biopsied), mild colitis in cecum, internal hemorrhoids - Recommendation: Contact GI for emergencies, await pathology Objective: - General: Alert, in mild distress due to abdominal pain - Abdomen: Tenderness to RLQ, no rebound/guarding, no palpable masses - Labs: H/H 6.5/22.7 (downtrending, previously 5.6), other labs pending - Imaging: CT abdomen/pelvis notable for significant right-sided constipation, no free air or acute perforation - Received 2 units PRBC for anemia REVIEW OF SYSTEMS CONSTITUTIONAL: Denies fevers, chills, or night sweats. No unintentional weight loss reported. NEUROLOGICAL: Denies headache, amaurosis fugax, motor weakness, sensory deficit, vertigo/spinning sensation, gait abnormalities, or tremors. ENT: No hearing loss, otalgia, otorrhea, rhinitis, rhinorrhea, hoarseness, or sore throat. CARDIOVASCULAR: Denies any exertional angina, dyspnea on exertion, orthopnea, paroxysmal nocturnal dyspnea, palpitations, life-threatening arrhythmias, blas dication. PULMONARY: Denies any shortness of breath, cough, phlegm/sputum, hemoptysis, pleuritic chest pain. SLEEP: Denies morning headaches, daytime somnolence or napping. Denies difficulty falling asleep, staying asleep, waking from sleep. Denies knowledge of snoring. GASTROINTESTINAL: Denies any type of dysphagia to either liquids or solids. Denies nausea, vomiting, pyrosis, early satiety, abdominal pain, diarrhea, constipation, or changes in stool consistency or caliber. Denies coffee-ground emesis, hematemesis, hematochezia, or melanotic stools. GENITOURINARY: Denies frequency, urgency, nocturia, hematuria or incontinence (Storage/Irritative symptoms.) Low urinary stream, straining to void, urinary intermittency or hesitancy, splitting of the voiding stream, terminal dribbling. ENDOCRINOLOGIC: Denies polyuria, polydipsia, polyphagia or heat/cold intolerances. HEMATOLOGIC: Denies thrombophilia/previous clots, or coagulopathy/bleeding disorders. ONCOLOGIC: Denies personal history of malignancy. DERMATOLOGIC: Denies rashes or pruritus. PSYCHIATRIC: Denies any suicidal or homicidal ideation. Denies hallucinations. PHYSICAL EXAM GENERAL APPEARANCE: The patient is awake, alert, and oriented, in no acute cardiopulmonary distress. NEUROLOGICAL: Cranial nerves II-XII grossly intact. Motor is 5/5 in bilateral upper and lower extremities proximal to distal. No sensory deficits. HEENT: Face is symmetric. Pupils are equal and reactive. Extraocular movements are intact. NECK: Supple. No JVD. No thyromegaly. No submental, submandibular, pre- /postauricular, occipital or supraclavicular lymphadenopathy. CHEST: Normal chest expansion. No Telemetry. LUNGS: Absence of any rales, rhonchi or any wheezing. CARDIOVASCULAR: Regular. S1 and S2 normal. No appreciable rubs, murmurs or gallops. ABDOMEN: Soft, nontender, and nondistended. There is no rebound, voluntary guarding, or rigidity. : Deferred. No Gates. EXTREMITIES: Non-edematous and not cyanotic. No clubbing. Good capillary refill. SKIN: No skin breakdown. Vital Signs (last 8hr) Date Time Temp Pulse Resp B/P (MAP) Pulse Ox O2 Delivery O2 Flow Rate FiO2 11/05/25 16:00 98.2 61 16 118/70 99 Room Air 11/05/25 11:36 98.1 65 18 109/66 99 Room Air 11/05/25 09:28 Room Air* 0 21 LABS: Laboratory: Test 11/05/25 10:07 11/05/25 05:20 11/05/25 03:45 11/05/25 03:35 Range/Units Hemoglobin 5.8 *L 12.0-16.0 g/dL Hematocrit 20.4 *L 36-48 % Prothrombin Time 10.8 9.6-11.6 SEC Prothromb Time International Ratio 1.02 0.85-1.15 Activated Partial Thromboplast Time 23.1 L 26.3-35.5 SEC Phosphorus Level 3.1 2.5-4.9 mg/dL Magnesium Level 1.70 L 1.80-2.40 mg/dL Iron Level 7 L 50-170 mcg/dL Total Iron Binding Capacity 455 H 250-450 mcg/dL Percent Iron Saturation 1.5 L 22-44 % Lactate Dehydrogenase 167 81-234 U/L Urine Color LIGHT-YELLOW YELLOW Urine Appearance CLOUDY H CLEAR Urine pH 6.5 5.0-8.0 Urine Specific [place] 1.021 1.001-1.031 Urine Protein 20 H NEGATIVE mg/dL Urine Glucose (UA) NEGATIVE NEGATIVE mg/dL Urine Ketones NEGATIVE NEGATIVE mg/dL Urine Occult Blood LARGE H NEGATIVE Urine Nitrate NEGATIVE NEGATIVE Urine Bilirubin NEGATIVE NEGATIVE mg/dL Urine Urobilinogen 0.2 0.2-1.0 mg/dL Urine Leukocyte Esterase 25 H NEGATIVE Varun/uL Urine RBC TNTC H 0-1 /HPF Urine WBC 6-10 H 0-1 /HPF Urine Squamous Epithelial Cells FEW 0-2 /HPF Urine Bacteria RARE None Seen /HPF Urine HCG, Qualitative NEGATIVE NEGATIVE White Blood Count 9.6 4.8-10.8 K/uL Red Blood Count 3.31 L 4.00-5.50 MIL/uL Mean Corpuscular Volume 68.6 L 79-99 fL Mean Corpuscular Hemoglobin 19.6 L 27.0-33.0 pg Mean Corpuscular Hemoglobin Concent 28.6 L 32.0-36.0 g/dL Red Cell Distribution Width 17.3 H 11.0-15.5 % Platelet Count 496 H 130-400 K/uL Mean Platelet Volume 9.4 7.5-10.5 fL Immature Granulocyte % (Auto) 0.6 0-1 % Neutrophils (%) (Auto) 68.9 40.0-77.0 % Lymphocytes (%) (Auto) 21.5 21.0-51.0 % Monocytes (%) (Auto) 7.4 3.0-13.0 % Eosinophils (%) (Auto) 1.3 0.0-8.0 % Basophils (%) (Auto) 0.3 0.0-5.0 % Neutrophils # (Auto) 6.6 1.8-7.7 K/uL Lymphocytes # (Auto) 2.1 1.0-4.8 K/uL Monocytes # (Auto) 0.7 0.1-1.0 K/uL Eosinophils # (Auto) 0.12 0.00-0.70 K/uL Basophils # (Auto) 0.03 0.00-0.20 K/uL Absolute Immature Granulocyte (auto 0.06 0-1 K/uL Nucleated Red Blood Cells 0.0 0.0-0.19 % Red Blood Cell Morphology See comments Reticulocyte Count (auto) 1.22213 0.42-2.23 % Immature Reticulocyte Fraction 26.90 H 0.18-0.48 % Sodium Level 139 136-145 mmol/L Potassium Level 3.8 3.5-5.1 mmol/L Chloride Level 104 101-111 mmol/L Carbon Dioxide Level 23 21-32 mmol/L Blood Urea Nitrogen 12 7-18 mg/dL Creatinine 0.8 0.5-1.0 mg/dL Glomerular Filtration Rate Calc 91 >90 mL/min Random Glucose 113 H 70-105 mg/dL Total Calcium 8.6 8.5-10.1 mg/dL Lipase 36 16-77 U/L Current Medications Medications (Trade) Dose Ordered Sig/Shahzrad Route PRN Reason Start Time Stop Time Status Last Admin Dose Admin Acetaminophen (TYLenol 325MG TAB) 650 mg Q6H PRN PO TEMPERATURE GREATER THAN 101.5 11/05/25 06:00 12/05/25 05:59 Ceftriaxone Sodium (ROCEphine 1G INJ) 1 gm DAILY IV 11/06/25 09:00 11/16/25 08:59 Hydralazine HCl (APRESOLine 20MG INJ) 10 mg Q6H PRN IV For:SBP above 160;DBP above 90 11/05/25 06:00 12/05/25 05:59 Hydromorphone HCl (DiLAUDid 0.5MG INJ) 0.5 mg Q4H PRN IVP SEVERE PAIN (7-10) 11/05/25 09:00 11/10/25 08:59 Lactulose (Constulose 20gm/ 30ml Udcup) 20 gm BID PRN PO CONSTIPATION 11/05/25 06:00 12/05/25 05:59 Morphine Sulfate (morPHINE 4MG SYG) 4 mg Q4H PRN IVP MODERATE PAIN (4-6) 11/05/25 06:00 11/05/25 15:09 DC Ondansetron HCl (zoFRAN 4MG INJ) 4 mg Q6H PRN IV NAUSEA/VOMITING 11/05/25 06:00 12/05/25 05:59 Pantoprazole Sodium (PROTonix 40MG INJ) 40 mg BID IVP 11/05/25 21:00 12/05/25 20:59 Sodium Chloride 1,000 ml @ 100 mls/hr Q10H IV 11/05/25 06:00 12/05/25 05:59 11/05/25 06:02 100 MLS/HR DIAGNOSTICS / RADIOLOGY: [ ] ASSESSMENT: [1. Acute on chronic anemia likely secondary to recent GI bleeding post- colonoscopy (ulcerated mucosa with stigmata of recent bleeding in colon/sigmoid). 2. RLQ abdominal pain post-procedural, likely related to mucosal ulceration/co litis; no evidence of perforation on CT. 3. History of non-erosive gastritis per recent EGD. 4. Constipation per CT findings. 5. Internal hemorrhoids incidental, not actively bleeding. ] PLAN: [- Continue to monitor H/H closely - Transfuse PRBC as needed (already received 2 units) - Consult General Surgery (given post-procedural pain and blood loss) - Consult Gastroenterology - Await pathology results from recent biopsies - Supportive care: IV fluids, bowel regimen for constipation - Monitor for signs of peritonitis or hemodynamic instability - Pain management as needed - Educate patient on warning signs and need for prompt reporting of worsening symptoms - Transfer patient to PCCU for close monitoring Case discussed with Dr. Petit above plan was formulated. ATTESTATION BY PHYSICIAN I have seen and examined the patient. I reviewed the documentation, medical decision making, and treatment plan as noted by the mid-level provider above. I agree with the findings and plan of care. DARREN PETIT MD, [facility] Nov 05, 2025 17:12
[2025-11-05 19:02] VITALS: BP 114/65; PULSE 66; RESP 16; TEMP 98.3
--- NOTE | 2025-11-05 19:49 | CONS ---
GENERAL SURGERY CONSULTATION NOTE Date/Time Patient Seen: [11/05/2025 15:45 ] Requesting Physician: [ ] Reason for Consultation: [ Abdominal pain] History of Present Illness: [45-year-old female admitted with complaints of lower abdominal pain and anemia requiring blood transfusion Initial CT abdomen pelvis without contrast shows right mid-ureteral calculus measuring 0.65 x 0.4 x 0.5 cm with mild right hydroureteronephrosis At the time of my examination, patient has been pain-free since 1 p.m. Patient does have a history of kidney stones Patient has a history of iron-deficiency anemia for over a year, has been seeing a specialty development consultant and getting iron infusions Patient also has a history of bleeding hemorrhoids, which is why she was referred to Gastroenterology. Patient had EGD and colonoscopy on 11/02/[address]Carlos Flynn at [facility] EGD found patient has nonerosive gastritis, biopsies obtained, pending results Colonoscopy showed internal hemorrhoids and pre mucosal ulceration in the rectum and the rectosigmoid colon and in the sigmoid colon, biopsies obtained, pending results Patient is currently getting a blood transfusion for an H&H of 6.5 and 22.7 Past surgical history of Past Medical History: [Chronic iron-deficiency anemia, kidney stones ] Past Surgical History: [ ] Family History: [ ] Social History: [ ] Habits: [Never] smoker. [Denies] alcohol consumption. [Denies] illicit drug use Current Medications Medications (Trade) Dose Ordered Sig/Shahrzad Route Start Time Stop Time Status Last Admin Dose Admin Ceftriaxone Sodium (ROCEphine 1G INJ) 1 gm DAILY IV 11/06/25 09:00 11/16/25 08:59 Pantoprazole Sodium (PROTonix 40MG INJ) 40 mg BID IVP 11/05/25 21:00 12/05/25 20:59 Sodium Chloride 1,000 ml @ 100 mls/hr Q10H IV 11/05/25 06:00 12/05/25 05:59 11/05/25 06:02 100 MLS/HR Review of Systems: CONST: [No fever, fatigue, or weight changes.] EYES: [No recent vision problems.] ENT: [No congestion, ear pain, or sore throat.] C/V: [No chest pain, palpitations, or edema.] RESP: [No cough, congestion, wheezing or shortness of breath.] GI: [No abdominal pain, nausea, vomiting, constipation, or diarrhea.] : [No incontinence or dysuria.] SKIN: [No rash.] NEURO: [No headache, focal numbness or weakness, dizziness.] HEME: [No abnormal bruising or bleeding.] Physical Examination: GENERAL: [No acute distress,female, comfortably resting in bed] HEAD: [Normocephalic.] EYES: [Normal conjunctiva.] ENT: [Hearing grossly intact.] NECK: [Supple.] LUNGS: [Clear breath sounds bilaterally.] HEART: [Normal rate and rhythm.] VASC: [Peripheral pulses +2 bilaterally.] ABD: [Bowel sounds normal, soft, nontender, no masses, no guarding or rigidity.] : [Not examined] EXT: [No edema.] SKIN: [No rashes or lesions noted.] NEURO: [Awake, alert, and oriented x3. No focal sensory or strength deficits noted.] Vital Signs (last 8hr) Date Time Temp Pulse Resp B/P (MAP) Pulse Ox O2 Delivery O2 Flow Rate FiO2 11/05/25 19:02 98.2 66 16 114/65 99 Room Air 11/05/25 16:00 98.2 61 16 118/70 99 Room Air Laboratory: [ ] Hematology Labs: Test 11/05/25 10:07 11/05/25 03:35 Range/Units Hemoglobin 5.8 *L 12.0-16.0 g/dL Hematocrit 20.4 *L 36-48 % White Blood Count 9.6 4.8-10.8 K/uL Red Blood Count 3.31 L 4.00-5.50 MIL/uL Mean Corpuscular Volume 68.6 L 79-99 fL Mean Corpuscular Hemoglobin 19.6 L 27.0-33.0 pg Mean Corpuscular Hemoglobin Concent 28.6 L 32.0-36.0 g/dL Red Cell Distribution Width 17.3 H 11.0-15.5 % Platelet Count 496 H 130-400 K/uL Mean Platelet Volume 9.4 7.5-10.5 fL Immature Granulocyte % (Auto) 0.6 0-1 % Neutrophils (%) (Auto) 68.9 40.0-77.0 % Lymphocytes (%) (Auto) 21.5 21.0-51.0 % Monocytes (%) (Auto) 7.4 3.0-13.0 % Eosinophils (%) (Auto) 1.3 0.0-8.0 % Basophils (%) (Auto) 0.3 0.0-5.0 % Neutrophils # (Auto) 6.6 1.8-7.7 K/uL Lymphocytes # (Auto) 2.1 1.0-4.8 K/uL Monocytes # (Auto) 0.7 0.1-1.0 K/uL Eosinophils # (Auto) 0.12 0.00-0.70 K/uL Basophils # (Auto) 0.03 0.00-0.20 K/uL Absolute Immature Granulocyte (auto 0.06 0-1 K/uL Nucleated Red Blood Cells 0.0 0.0-0.19 % Red Blood Cell Morphology See comments Reticulocyte Count (auto) 1.69691 0.42-2.23 % Immature Reticulocyte Fraction 26.90 H 0.18-0.48 % Chemistry Labs: Test 11/05/25 05:20 11/05/25 03:35 Range/Units Phosphorus Level 3.1 2.5-4.9 mg/dL Magnesium Level 1.70 L 1.80-2.40 mg/dL Iron Level 7 L 50-170 mcg/dL Total Iron Binding Capacity 455 H 250-450 mcg/dL Percent Iron Saturation 1.5 L 22-44 % Lactate Dehydrogenase 167 81-234 U/L Sodium Level 139 136-145 mmol/L Potassium Level 3.8 3.5-5.1 mmol/L Chloride Level 104 101-111 mmol/L Carbon Dioxide Level 23 21-32 mmol/L Blood Urea Nitrogen 12 7-18 mg/dL Creatinine 0.8 0.5-1.0 mg/dL Glomerular Filtration Rate Calc 91 >90 mL/min Random Glucose 113 H 70-105 mg/dL Total Calcium 8.6 8.5-10.1 mg/dL Lipase 36 16-77 U/L Coagulation Labs: Test 11/05/25 05:20 Range/Units Prothrombin Time 10.8 9.6-11.6 SEC Prothromb Time International Ratio 1.02 0.85-1.15 Activated Partial Thromboplast Time 23.1 L 26.3-35.5 SEC Diagnostics / Radiology: [facility] [address] [place] [address] IMAGING REPORT Signed PATIENT: DUSTIN VINCENT MR#: [id number] : 1980 SEX: F AGE: 45 LOCATION: [facility] ORDER 0 STATUS: ADM IN REPORT#: [id number] SERVICE 9 REASON: Right flank pain And Right lower abdominal pain ORDERING PHYSICIAN: BAUDILIO FOREMAN MD PROCEDURE: ABD PELVWO - CT ABD/PEL WO CON RENAL/APPY EXAMINATION: CT Abdomen and Pelvis without intravenous contrast. CLINICAL HISTORY: Patient presents with right flank pain and right lower abdominal pain. TECHNIQUE: Axial CT of the abdomen and pelvis without intravenous contrast. Multiplanar reformations were generated and reviewed. CONTRAST: No intravenous contrast. COMPARISON: None provided. FINDINGS: LUNG BASES: Subsegmental atelectatic opacities in the right lower lung. LIVER: Unremarkable in size and density. No focal hepatic lesion. GALLBLADDER AND BILE DUCTS: Unremarkable with no radioopaque gallstones or wall thickening. No biliary ductal dilatation. PANCREAS: Unremarkable in appearance. No calcifications. SPLEEN: Unremarkable in size and density. ADRENAL GLANDS: Unremarkable. KIDNEYS, URETERS, AND BLADDER: Mild hydroureteronephrosis in the right kidney. A calculus measuring approximately 0.65 x 0.4 x 0.5 cm is in the right mid-ureter, just proximal to the iliac crossing level. Tiny early forming calculi/concretions measuring 1 to 2mm in the bilateral kidneys. A hypodense cystic lesion measuring approximately 3.4 x 4.4 cm in the interpolar region of the right kidney. A small hypodense cystic lesion measuring 1.6 x 1.1 cm is present in the lower pole of the left kidney. The urinary bladder is normal. STOMACH AND BOWEL: Unremarkable appearance of the stomach and bowel loops. No bowel wall thickening or obstruction. The colon is fecal loaded predominantly on the right side. APPENDIX: No CT features of acute appendicitis. PERITONEUM: No free fluid or free air. LYMPH NODES: No retroperitoneal or pelvic lymphadenopathy. REPRODUCTIVE: The uterus and adnexa are normal. VASCULATURE: The aorta is normal in caliber. No gross aneurysm. BONES: Minor spondylotic changes are present in the visualized spine. Otherwise unremarkable. No acute or aggressive osseous abnormality. IMPRESSION: Right mid-ureteral calculus measuring 0.65 x 0.4 x 0.5 cm with mild right hydroureteronephrosis. Tiny bilateral non-obstructive renal calculi/concretions. Hypodense lesions measuring 3.4 x 4.4 cm in the interpolar region of the right kidney and 1.6 x 1.1 cm in the lower pole of the left kidney, probably a cyst. suggested contrast CT /US correlation. Fecal loaded colon, predominantly on the right side. /[place] DICTATED BY: FILI MEDINA Jr., MD DATE: 11/05/25841 ELECTRONICALLY SIGNED BY: FILI MEDINA Jr., MD DATE: 11/05/25841 Assessment: [45-year-old female with lower abdominal pain, anemia requiring blood transfusion, concerns for appendicitis versus postprocedure bleeding ] Plan: [ At the time of examination, patient was pain-free Patient's abdomen was soft, nondistended, nontender, no guarding or rigidity Patient is currently getting a blood transfusion, which he has been recommended to get in the past but has refused Patient has had multiple iron infusions with her specialty development consultant due to her chronic iron-deficiency anemia We will order CT scan of abdomen and pelvis with oral and IV contrast Repeat labs in a.m. From surgical standpoint, no emergent surgical intervention at this time Dr. David updated on patient's status Surgical case has been discussed with my supervising physician Plan of care was formulated and agreed upon Supervising physician will be evaluated patient within the next 24 hours We appreciate the hospitalist team for allowing us to participate in this patient's care Greater than 55 minutes spent examining patient, reviewing chart and working on documentation S ] ATTESTATION BY PHYSICIAN I have seen and examined the patient. I reviewed the documentation, medical decision making, and treatment plan as noted by the mid-level provider above. I agree with the findings and plan of care. MD RADHA GONSALES [facility] Nov 05, 2025 19:49
[2025-11-05 20:00] VITALS: O2SAT 98
[2025-11-05 20:20] LABS: IMMATURE GRANULOCYTE ABSOLUTE 0.02 K/uL (0-1); NUCLEATED RED BLOOD CELLS 0.0 % (0.0-0.19); PLATELET COUNT (AUTO) 402 K/uL (130-400); RED BLOOD CELL COUNT(AUTO) 3.99 MIL/uL (4.00-5.50); RED CELL DISTRIBUTION WIDTH 20.4 % (11.0-15.5); WHITE BLOOD COUNT (AUTO) 6.6 K/uL (4.8-10.8)
[2025-11-05 20:29] LABS: ASPARTATE AMINOTRANSFERASE 13.0 U/L (10-37); CREATININE 0.6 mg/dL (0.5-1.0); GLOMERULAR FILTR. RATE CALC 111.0 mL/min (>90); GLUCOSE,RANDOM 126.0 mg/dL (70-105); SODIUM SERUM 139.0 mmol/L (136-145); TOTAL PROTEIN, SERUM 6.7 g/dL (6.0-8.3); UREA NITROGEN, BLOOD 7.0 mg/dL (7-18)
--- NOTE | 2025-11-05 20:53 | CONS ---
CONSULTATION NOTE Date of Service: Nov 05, 2025 Reason for Consultation: Obstructing 6 mm right mid ureteral calculus with symptoms of renal colic Requesting Physician: Philip Thakur MD HISTORY OF PRESENT ILLNESS: 45-year-old female with a previous history of nephrolithiasis presented to this facility reporting right flank pain. Onset is two days ago. Location is right lower quadrant. Duration is on and off. Character is described as sharp. There was no alleviating factors. Symptoms are aggravated after having a colonoscopy and EGD two days ago where she was diagnosed with hemorrhoids. Patient reports associated nausea and right flank pain. In the emergency department hemoglobin 6.5, hematocrit 22.7, chemistry unremarkable, urinalysis positive for leukocyte esterase and WBCs 6-10 per high-powered microscopy field. Also no stool sample has been collected or sent to lab however there is high suspicion for GI bleed given anemia and recent EGD/colonoscopy. A CT scan abdomen and pelvis without contrast did confirm a 6.6 mm stone in the right mid ureter with a hydroureteronephrosis. Patient admitted to the floor for supportive care with a urological consult. REVIEW OF SYSTEMS CONSTITUTIONAL: Denies fever, chills, or fatigue. HEAD/FACE: No signs of trauma. EENT: Denies eye pain, blurred vision, double vision, or light sensitivity. RESPIRATORY: Denies shortness of breath, cough, wheezing CARDIOVASCULAR: Denies chest pain, palpitation, syncope GASTROINTESTINAL/ABDOMINAL: Denies abdominal pain, constipation, diarrhea, nausea or vomiting GENITOURINARY: Denies dysuria or hematuria. MUSCULOSKELETAL: Denies joint pain, tenderness, or trauma. INTEGUMENTARY: Denies rash or itchiness NEUROLOGICAL/PSYCH: Denies anxiety, depression, heat or cold intolerance. PAST MEDICAL HISTORY: Nephrolithiasis PAST SURGICAL HISTORY: EGD/colonoscopy PAST SOCIAL HISTORY: Denies smoking, consumes ethanol socially, denies recreational drugs FAMILY HISTORY: Noncontributory Coded Allergies: morphine (Unverified Allergy, Unknown, HIVES, 11/05/25) PHYSICAL EXAM EYES: Anicteric. Pupils equal and reactive. HENT: No oral thrush seen, moist Oral mucosa NECK: Supple, no JVD or thyromegaly. LUNGS: Good air entry. No rales, no rhonchi. CARDIOVASCULAR: S1, S2 regular. No murmur heard. ABDOMEN: Soft, non tender, bowel sounds present, no organomegaly CENTRAL NERVOUS SYSTEM: Awake, alert, oriented x 3. No focal deficits. SKIN: No rashes, no swelling. LYMPHATICS: No peripheral lymphadenopathy MUSCULOSKELETAL: No joint swelling, erythema or tenderness. EXTREMITIES: No cyanosis or clubbing BACK: No deformity, no pressure ulcer. GENITOURINARY: Normal Vital Sign (Last 24 Hours) 11/05/25 11/05/25 09:28 19:02 Temp 98.2 Pulse 66 Resp 16 B/P (MAP) 114/65 Pulse Ox 99 O2 Delivery Room Air O2 Flow Rate 0 FiO2 21 LABS: Laboratory: Test 11/05/25 20:08 11/05/25 19:15 11/05/25 05:20 11/05/25 03:45 Range/Units White Blood Count 6.6 # 4.8-10.8 K/uL Red Blood Count 3.99 #L 4.00-5.50 MIL/uL Hemoglobin 8.6 #L 12.0-16.0 g/dL Hematocrit 29.2 #L 36-48 % Mean Corpuscular Volume 73.2 L 79-99 fL Mean Corpuscular Hemoglobin 21.6 L 27.0-33.0 pg Mean Corpuscular Hemoglobin Concent 29.5 L 32.0-36.0 g/dL Red Cell Distribution Width 20.4 H 11.0-15.5 % Platelet Count 402 H 130-400 K/uL Mean Platelet Volume 9.3 7.5-10.5 fL Immature Granulocyte % (Auto) 0.3 0-1 % Neutrophils (%) (Auto) 62.2 40.0-77.0 % Lymphocytes (%) (Auto) 26.5 21.0-51.0 % Monocytes (%) (Auto) 8.8 3.0-13.0 % Eosinophils (%) (Auto) 1.7 0.0-8.0 % Basophils (%) (Auto) 0.5 0.0-5.0 % Neutrophils # (Auto) 4.1 1.8-7.7 K/uL Lymphocytes # (Auto) 1.8 1.0-4.8 K/uL Monocytes # (Auto) 0.6 0.1-1.0 K/uL Eosinophils # (Auto) 0.11 0.00-0.70 K/uL Basophils # (Auto) 0.03 0.00-0.20 K/uL Absolute Immature Granulocyte (auto 0.02 0-1 K/uL Nucleated Red Blood Cells 0.0 0.0-0.19 % Sodium Level 139 136-145 mmol/L Potassium Level 3.9 3.5-5.1 mmol/L Chloride Level 105 101-111 mmol/L Carbon Dioxide Level 26 21-32 mmol/L Blood Urea Nitrogen 7 7-18 mg/dL Creatinine 0.6 0.5-1.0 mg/dL Glomerular Filtration Rate Calc 111 >90 mL/min Random Glucose 126 H 70-105 mg/dL Total Calcium 8.1 L 8.5-10.1 mg/dL Total Bilirubin 1.5 H 0.2-1.0 mg/dL Aspartate Amino Transf (AST/SGOT) 13 10-37 U/L Alanine Aminotransferase (ALT/SGPT) 15 12-78 U/L Alkaline Phosphatase 68 50-136 U/L Total Protein 6.7 6.0-8.3 g/dL Albumin 3.2 L 3.5-5.0 g/dL Stool Occult Blood POSITIVE H NEGATIVE Prothrombin Time 10.8 9.6-11.6 SEC Prothromb Time International Ratio 1.02 0.85-1.15 Activated Partial Thromboplast Time 23.1 L 26.3-35.5 SEC Phosphorus Level 3.1 2.5-4.9 mg/dL Magnesium Level 1.70 L 1.80-2.40 mg/dL Iron Level 7 L 50-170 mcg/dL Total Iron Binding Capacity 455 H 250-450 mcg/dL Percent Iron Saturation 1.5 L 22-44 % Lactate Dehydrogenase 167 81-234 U/L Urine Color LIGHT-YELLOW YELLOW Urine Appearance CLOUDY H CLEAR Urine pH 6.5 5.0-8.0 Urine Specific Pierce 1.021 1.001-1.031 Urine Protein 20 H NEGATIVE mg/dL Urine Glucose (UA) NEGATIVE NEGATIVE mg/dL Urine Ketones NEGATIVE NEGATIVE mg/dL Urine Occult Blood LARGE H NEGATIVE Urine Nitrate NEGATIVE NEGATIVE Urine Bilirubin NEGATIVE NEGATIVE mg/dL Urine Urobilinogen 0.2 0.2-1.0 mg/dL Urine Leukocyte Esterase 25 H NEGATIVE Varun/uL Urine RBC TNTC H 0-1 /HPF Urine WBC 6-10 H 0-1 /HPF Urine Squamous Epithelial Cells FEW 0-2 /HPF Urine Bacteria RARE None Seen /HPF Urine HCG, Qualitative NEGATIVE NEGATIVE Test 11/05/25 03:35 Range/Units Red Blood Cell Morphology See comments Reticulocyte Count (auto) 1.44222 0.42-2.23 % Immature Reticulocyte Fraction 26.90 H 0.18-0.48 % Lipase 36 16-77 U/L DIAGNOSTICS / RADIOLOGY: CT scan abdomen and pelvis obtained in the early hours today 11/05/2025 co nfirmed a 6.6 mm stone in the right mid ureter with hydro ureteral nephrosis. ASSESSMENT: 45-year-old female presents with a 6.6 mm stone causing obstruction in the right mid ureter. PLAN: 1. The stone we believe is large for independent passage. Patient wants a repeat CT imaging because she thinks she has passed it. I will suggest the primary team to order a repeat CT scan on 11/06/2025. 2. We offered her treatment alternatives. She is interested in shockwave lithotripsy as opposed to ureteroscopy with laser lithotripsy. We are able to perform shockwave lithotripsy for her in [place] on 11/07/2025. But we have to make arrangements so the decision to proceed with this procedure has to be made tomorrow 11/06/2025. 3. Thank you for involving us in the care of this patient. 60 minutes spent to complete a consult, more than half of the time spent in counseling and coordination of care and addressing questions posed by patient, some time was spent discussing with members of her care team, the rest of the time spent reviewing medical records including laboratory data and imaging SAM Mcleod MD Nov 05, 2025 20:53
[2025-11-05 23:19] VITALS: BP 127/77; PULSE 66; RESP 16; TEMP 98.4
[2025-11-06 03:14] VITALS: BP 99/55; PULSE 63; RESP 16; TEMP 97.7
[2025-11-06] MEDS ORDERED: IOHEXOL-350 75 ML VIAL IV ONE (06:06)
[2025-11-06 06:51] LABS: IMMATURE GRANULOCYTE ABSOLUTE 0.02 K/uL (0-1); NUCLEATED RED BLOOD CELLS 0.0 % (0.0-0.19); PLATELET COUNT (AUTO) 402 K/uL (130-400); RED BLOOD CELL COUNT(AUTO) 3.95 MIL/uL (4.00-5.50); RED CELL DISTRIBUTION WIDTH 19.5 % (11.0-15.5); WHITE BLOOD COUNT (AUTO) 6.8 K/uL (4.8-10.8)
[2025-11-06 07:55] VITALS: BP 120/59; PULSE 60; RESP 16; TEMP 98.3
[2025-11-06 09:48] LABS: CREATININE 0.5 mg/dL (0.5-1.0); GLOMERULAR FILTR. RATE CALC 116.0 mL/min (>90); GLUCOSE,RANDOM 86.0 mg/dL (70-105); SODIUM SERUM 139.0 mmol/L (136-145); UREA NITROGEN, BLOOD 6.0 mg/dL (7-18)
[2025-11-06 09:53] LABS: ASPARTATE AMINOTRANSFERASE 17.0 U/L (10-37); TOTAL PROTEIN, SERUM 6.6 g/dL (6.0-8.3)
[2025-11-06 10:41] VITALS: O2SAT 99
--- NOTE | 2025-11-06 10:51 | HMCIMG ---
EXAM: CT Abdomen and Pelvis with IV contrast CLINICAL HISTORY: Right lower quadrant pain to rule out appendicitis. TECHNIQUE: Thin collimated axial CT images of the abdomen and pelvis were obtained, with sagittal and coronal reformatted images also submitted. A CT scan is done according to ALARA (As Low As Reasonably Achievable). CONTRAST: Contrast details are not available. COMPARISON: None. FINDINGS: Unremarkable visualized lung parenchyma. No focal abnormality in the liver, gallbladder, pancreas, adrenal glands, or spleen. A lobulated 2.9 x 1.9 cm enhancing lesion on the superior aspect of the spleen, which on the noncontrast scan done the day before, appears hypodense to the spleen. Right renal cortical cyst 4.0 x 3.8 cm in the interpolar region, and a few other smaller cortical cysts in the right kidney, a 1.8 cm cortical cyst from the left kidney lower pole, and a 12 mm cortical cyst from the left kidney interpolar region. No obvious septations or calcification within. Type I Bosniak cyst. No follow-up as indicated. A 3.2 mm calculus in the right proximal ureter, mild right-sided hydronephrosis, and proximal hydroureter. Nonobstructive punctate 2 mm calculus in the left kidney interpolar calyx and in the bilateral kidney lower pole calyces. Small omental fat containing umbilical hernia (12 x 6 mm). Subtle inflammatory wall thickening in the sigmoid colon and scattered diverticulosis of the distal descending colon. There is no obvious bowel wall thickening. Bowel loops are normal in caliber without evidence of obstruction or ileus. The appendix is normal. There is no abnormality within the urinary bladder. Unremarkable reproductive organs. Abdominal and pelvic vessels are patent. No lymphadenopathy. No free fluid. There is no acute osseous abnormality. Bilateral pars defect at the L5-S1 level without evidence of anterolisthesis. IMPRESSIONS: A 3.2 mm calculus in the right proximal ureter, mild right-sided hydronephrosis, and proximal hydroureter. Nonobstructive punctate 2 mm calculus in the left kidney interpolar calyx and bilateral kidneys' lower pole calyces. Bilateral renal cortical cysts, largest on the right kidney interpolar region measuring 4.0 x 3.8 cm. The appendix, terminal ileum, and ileocecal junction appear unremarkable. Small omental fat containing umbilical hernia (12 x 6 mm). Subtle inflammatory wall thickening in the sigmoid colon and scattered diverticulosis of the distal descending colon. Mild fatty infiltration of the liver. No obvious focal lesion. A lobulated 2.9 x 1.9 cm enhancing lesion on the superior aspect of the spleen, which on the noncontrast scan done the day before, appears hypodense to the spleen. Probable enhancing deposits. /Miri
--- NOTE | 2025-11-06 11:01 | PN ---
[facility] PROGRESS NOTE Date of Service: Nov 06, 2025 Time of Service: 10:58 SUBJECTIVE: [45-year-old female presented to the ED with right lower quadrant (RLQ) abdominal pain. She underwent elective colonoscopy and EGD last (11/03/25) at [facility] by Dr. Lester Duncan. She was asymptomatic immediately post- procedure and discharged home. Yesterday, she developed RLQ pain, prompting her ED visit. She reports intermittent pain, currently localized to the RLQ. No report of melena or hematochezia. She has a history of anemia; todays labs revealed significant drop in H/H to 6.5/22.7 (previously higher). She denies fevers, chills, or urinary symptoms. Review of EGD (11/03/25): - Duodenum: Normal - Z-line: Regular at GE junction - Stomach: Localized minimal erythema (non-erosive gastritis), bilious fluid in fundus/body - Cardia/fundus: Normal - Biopsies: Taken from areas of erythema - Impression: Non-erosive gastritis, otherwise normal exam - Recommendation: Await pathology, continue current medications Review of Colonoscopy (11/03/25): - Colon/Sigmoid: Continuous area of non-bleeding ulcerated mucosa with stigmata of recent bleeding; biopsied - Cecum: Localized mild inflammation (loss of vascularity, granularity, erythema); biopsied - Terminal ileum: Normal; biopsied - Random biopsies: Ascending, transverse, and ascending colon (normal-appearing mucosa) - Internal hemorrhoids: Medium-sized - Impression: Mucosal ulceration in colon/sigmoid (biopsied), mild colitis in cecum, internal hemorrhoids - Recommendation: Contact GI for emergencies, await pathology Objective: - Vitals: [Insert most recent vitals here] - General: Alert, in mild distress due to abdominal pain - Abdomen: Tenderness to RLQ, no rebound/guarding, no palpable masses - Labs: H/H 6.5/22.7 (downtrending, previously 5.6), other labs pending - Imaging: CT abdomen/pelvis notable for significant right-sided constipation, no free air or acute perforation - Received 2 units PRBC for anemia 11/06 patient remains admitted to the PCU, no acute events overnight, comfortably in bed, alert oriented x3, hemodynamically stable, afebrile, saturating normal on room air. Patient received 2 units of PRBC 11/05/2025, tolerated the procedure well. A dose of lactulose given, small amount of stool, she is passing gas, no nausea, no vomiting, no abdominal pain. Patient evaluated by urologist, input noted and appreciated, pending repeat CT of the abdomen and pelvis with IV contrast. We will continue to follow urology input and recommendation. Surgical input noted and appreciated, no surgical intervention required at this time. Pending GI input and recommendation. The patient has been seen as an outpatient by deliverer outside Dr. Wild for iron IV, we will request Hematology consult. If no further acute intervention required during this hospitalization likely the patient to be discharged home. Discussed with the patient, in agreement. REVIEW OF SYSTEMS CONSTITUTIONAL: Denies fevers, chills, or night sweats. No unintentional weight loss reported. NEUROLOGICAL: Denies headache, amaurosis fugax, motor weakness, sensory deficit, vertigo/spinning sensation, gait abnormalities, or tremors. ENT: No hearing loss, otalgia, otorrhea, rhinitis, rhinorrhea, hoarseness, or sore throat. CARDIOVASCULAR: Denies any exertional angina, dyspnea on exertion, orthopnea, paroxysmal nocturnal dyspnea, palpitations, life-threatening arrhythmias, claudication. PULMONARY: Denies any shortness of breath, cough, phlegm/sputum, hemoptysis, pleuritic chest pain. SLEEP: Denies morning headaches, daytime somnolence or napping. Denies difficulty falling asleep, staying asleep, waking from sleep. Denies knowledge of snoring. GASTROINTESTINAL: Denies any type of dysphagia to either liquids or solids. Denies nausea, vomiting, pyrosis, early satiety, abdominal pain, diarrhea, constipation, or changes in stool consistency or caliber. Denies coffee-ground emesis, hematemesis, hematochezia, or melanotic stools. GENITOURINARY: Denies frequency, urgency, nocturia, hematuria or incontinence (Storage/Irritative symptoms.) Low urinary stream, straining to void, urinary intermittency or hesitancy, splitting of the voiding stream, terminal dribbling. ENDOCRINOLOGIC: Denies polyuria, polydipsia, polyphagia or heat/cold intolerances. HEMATOLOGIC: Denies thrombophilia/previous clots, or coagulopathy/bleeding disorders. ONCOLOGIC: Denies personal history of malignancy. DERMATOLOGIC: Denies rashes or pruritus. PSYCHIATRIC: Denies any suicidal or homicidal ideation. Denies hallucinations. PHYSICAL EXAM GENERAL APPEARANCE: The patient is awake, alert, and oriented, in no acute cardiopulmonary distress. NEUROLOGICAL: Cranial nerves II-XII grossly intact. Motor is 5/5 in bilateral upper and lower extremities proximal to distal. No sensory deficits. HEENT: Face is symmetric. Pupils are equal and reactive. Extraocular movements are intact. NECK: Supple. No JVD. No thyromegaly. No submental, submandibular, pre- /postauricular, occipital or supraclavicular lymphadenopathy. CHEST: Normal chest expansion. No Telemetry. LUNGS: Absence of any rales, rhonchi or any wheezing. CARDIOVASCULAR: Regular. S1 and S2 normal. No appreciable rubs, murmurs or gallops. ABDOMEN: Soft, nontender, and nondistended. There is no rebound, voluntary guarding, or rigidity. : Deferred. No Gates. EXTREMITIES: Non-edematous and not cyanotic. No clubbing. Good capillary refill. SKIN: No skin breakdown. Vital Signs (last 8hr) Date Time Temp Pulse Resp B/P (MAP) Pulse Ox O2 Delivery O2 Flow Rate FiO2 11/06/25 10:41 99 Room Air* 0 21 11/06/25 07:55 98.2 60 16 120/59 100 Room Air 21 11/06/25 03:14 97.7 63 16 99/55 99 Room Air LABS: Laboratory: Test 11/06/25 06:39 11/05/25 19:15 11/05/25 05:20 11/05/25 03:45 Range/Units White Blood Count 6.8 4.8-10.8 K/uL Red Blood Count 3.95 L 4.00-5.50 MIL/uL Hemoglobin 8.6 L 12.0-16.0 g/dL Hematocrit 28.9 L 36-48 % Mean Corpuscular Volume 73.2 L 79-99 fL Mean Corpuscular Hemoglobin 21.8 L 27.0-33.0 pg Mean Corpuscular Hemoglobin Concent 29.8 L 32.0-36.0 g/dL Red Cell Distribution Width 19.5 H 11.0-15.5 % Platelet Count 402 H 130-400 K/uL Mean Platelet Volume 9.0 7.5-10.5 fL Immature Granulocyte % (Auto) 0.3 0-1 % Neutrophils (%) (Auto) 60.4 40.0-77.0 % Lymphocytes (%) (Auto) 28.8 21.0-51.0 % Monocytes (%) (Auto) 8.8 3.0-13.0 % Eosinophils (%) (Auto) 1.3 0.0-8.0 % Basophils (%) (Auto) 0.4 0.0-5.0 % Neutrophils # (Auto) 4.1 1.8-7.7 K/uL Lymphocytes # (Auto) 2.0 1.0-4.8 K/uL Monocytes # (Auto) 0.6 0.1-1.0 K/uL Eosinophils # (Auto) 0.09 0.00-0.70 K/uL Basophils # (Auto) 0.03 0.00-0.20 K/uL Absolute Immature Granulocyte (auto 0.02 0-1 K/uL Nucleated Red Blood Cells 0.0 0.0-0.19 % Sodium Level 139 136-145 mmol/L Potassium Level 3.9 3.5-5.1 mmol/L Chloride Level 106 101-111 mmol/L Carbon Dioxide Level 26 21-32 mmol/L Blood Urea Nitrogen 6 L 7-18 mg/dL Creatinine 0.5 0.5-1.0 mg/dL Glomerular Filtration Rate Calc 116 >90 mL/min Random Glucose 86 70-105 mg/dL Total Calcium 8.0 L 8.5-10.1 mg/dL Magnesium Level 1.90 1.80-2.40 mg/dL Total Bilirubin 1.3 H 0.2-1.0 mg/dL Aspartate Amino Transf (AST/SGOT) 17 10-37 U/L Alanine Aminotransferase (ALT/SGPT) 13 12-78 U/L Alkaline Phosphatase 59 50-136 U/L Total Protein 6.6 6.0-8.3 g/dL Albumin 3.0 L 3.5-5.0 g/dL Stool Occult Blood POSITIVE H NEGATIVE Prothrombin Time 10.8 9.6-11.6 SEC Prothromb Time International Ratio 1.02 0.85-1.15 Activated Partial Thromboplast Time 23.1 L 26.3-35.5 SEC Phosphorus Level 3.1 2.5-4.9 mg/dL Iron Level 7 L 50-170 mcg/dL Total Iron Binding Capacity 455 H 250-450 mcg/dL Percent Iron Saturation 1.5 L 22-44 % Lactate Dehydrogenase 167 81-234 U/L Urine Color LIGHT-YELLOW YELLOW Urine Appearance CLOUDY H CLEAR Urine pH 6.5 5.0-8.0 Urine Specific Brady 1.021 1.001-1.031 Urine Protein 20 H NEGATIVE mg/dL Urine Glucose (UA) NEGATIVE NEGATIVE mg/dL Urine Ketones NEGATIVE NEGATIVE mg/dL Urine Occult Blood LARGE H NEGATIVE Urine Nitrate NEGATIVE NEGATIVE Urine Bilirubin NEGATIVE NEGATIVE mg/dL Urine Urobilinogen 0.2 0.2-1.0 mg/dL Urine Leukocyte Esterase 25 H NEGATIVE Varun/uL Urine RBC TNTC H 0-1 /HPF Urine WBC 6-10 H 0-1 /HPF Urine Squamous Epithelial Cells FEW 0-2 /HPF Urine Bacteria RARE None Seen /HPF Urine HCG, Qualitative NEGATIVE NEGATIVE Test 11/05/25 03:35 Range/Units Red Blood Cell Morphology See comments Reticulocyte Count (auto) 1.24851 0.42-2.23 % Immature Reticulocyte Fraction 26.90 H 0.18-0.48 % Lipase 36 16-77 U/L Current Medications Medications (Trade) Dose Ordered Sig/Shahrzad Route PRN Reason Start Time Stop Time Status Last Admin Dose Admin Acetaminophen (TYLenol 325MG TAB) 650 mg Q6H PRN PO TEMPERATURE GREATER THAN 101.5 11/05/25 06:00 12/05/25 05:59 Ceftriaxone Sodium (ROCEphine 1G INJ) 1 gm DAILY IV 11/06/25 09:00 11/16/25 08:59 11/06/25 10:28 1 GM Hydralazine HCl (APRESOLine 20MG INJ) 10 mg Q6H PRN IV For:SBP above 160;DBP above 90 11/05/25 06:00 12/05/25 05:59 Hydromorphone HCl (DiLAUDid 0.5MG INJ) 0.5 mg Q4H PRN IVP SEVERE PAIN (7-10) 11/05/25 09:00 11/10/25 08:59 Lactulose (Constulose 20gm/ 30ml Udcup) 20 gm BID PRN PO CONSTIPATION 11/05/25 06:00 12/05/25 05:59 Morphine Sulfate (morPHINE 4MG SYG) 4 mg Q4H PRN IVP MODERATE PAIN (4-6) 11/05/25 06:00 11/05/25 15:09 DC Ondansetron HCl (zoFRAN 4MG INJ) 4 mg Q6H PRN IV NAUSEA/VOMITING 11/05/25 06:00 12/05/25 05:59 Pantoprazole Sodium (PROTonix 40MG INJ) 40 mg BID IVP 11/05/25 21:00 12/05/25 20:59 11/06/25 10:28 40 MG Sodium Chloride 1,000 ml @ 100 mls/hr Q10H IV 11/05/25 06:00 12/05/25 05:59 11/06/25 04:04 100 MLS/HR DIAGNOSTICS / RADIOLOGY: [ ] ASSESSMENT: 1. Acute on chronic anemia likely secondary to recent GI bleeding post- colonoscopy (ulcerated mucosa with stigmata of recent bleeding in colon/sigmoid). 2. RLQ abdominal pain post-procedural, likely related to mucosal ulceration/colitis; no evidence of perforation on CT. 3. History of non-erosive gastritis per recent EGD. 4. Constipation per CT findings. 5. Internal hemorrhoids incidental, not actively bleeding. PLAN: patient remains admitted to the PCU, no acute events overnight, comfortably in bed, alert oriented x3, hemodynamically stable, afebrile, saturating normal on room air. Patient received 2 units of PRBC 11/05/2025, tolerated the procedure well. A dose of lactulose given, small amount of stool, she is passing gas, no nausea, no vomiting, no abdominal pain. Patient evaluated by urologist, input noted and appreciated, pending repeat CT of the abdomen and pelvis with IV contrast. We will continue to follow urology input and recommendation. Surgical input noted and appreciated, no surgical intervention required at this time. Pending GI input and recommendation. The patient has been seen as an outpatient by deliverer outside Dr. Wild for iron IV, we will request Hematology consult. If no further acute intervention required during this hospitalization likely the patient to be discharged home. Discussed with the patient, in agreement. NEURO: Minimize central acting medications as possible. Fall Precautions. Well lighted room through the day and minimize interruptions through the night to prevent acute delirium. PULMONARY: Supplemental 02 as needed BiPAP as necessary, for respiratory distress Titrate Fio2 to keep Spo2 > or = 90% DuoNebs and CPT as needed IS hourly while awake for pulmonary hygiene prn Out of bed to chair as tolerated Maintain aspiration precautions at all times CARDIOVASCULAR: Follow hemodynamics. Vital signs per facility protocol GI & NUTRITION: Continue nutritional support Aspirations precautions Prokinetic agents and laxatives as needed KIDNEYS & ELECTROLYTES: Strict monitoring of intake and output Daily weights Avoid nephrotoxic agents Monitor electrolytes and replace as needed Goal urine output of 30mL/hr or 0.5mL/kg/hr Medications to be dosed according to renal function. Avoid contrast if possible ENDOCRINE: Maintain blood glucose between 100-180 at all times. Insulin sliding scale for blood glucose management Hypoglycemia and hyperglycemia protocol in place INFECTIOUS DISEASE: Trend temperature, WBC and procalcitonin level Follow cultures, deescalate antibiotics as soon as possible. Panculture if new onset fever HEMATOLOGY & COAGULATION: Monitor H&H. Keep Hgb > 7 Transfuse 1 unit of PRBC for Hgb < 7 Transfuse 1 pack of platelets of platelets < 20, 000 Watch for any signs and symptoms of bleeding SKIN: Pressure ulcer prevention per facility protocol Specialty mattress as needed ORTHO/REHAB Continue PT/OT PRN: MEDICATIONS Tylenol 650 mg po every 4 hrs for fever zofran 4 mg IV every 6 hrs for n/v Hydralazine 5 mg IV every 4 hrs systolic pressure > 160 bowel regiment: lactulose 20 gm PO BID PRN constipation Supportive measures: Continue GI and DVT prophylaxis Disposition: Pending improvement in clinical condition All questions answered time spent: > 35 min DARREN PETIT MD Nov 06, 2025 11:01
[2025-11-06 11:43] VITALS: BP 122/77; PULSE 59; RESP 16; TEMP 98
--- NOTE | 2025-11-06 14:25 | CONS ---
GASTROENTEROLOGY CONSULTATION NOTE Date of Consultation: Nov 06, 2025 Time of Consultation: 14:25 History of Present Illness: This is a 45-year-old with no past medical history who presented due to abdominal pain to the right lower quadrant. Patient underwent EGD and colonoscopy 2 days ago where she was diagnosed with hemorrhoids. CT abdomen and pelvis revealing ureteral calculi. Repeat CT revealing interval calculus and hydronephrosis. Umbilical hernia. GI bleeding scan with no active bleeding. Hemoglobin is now stable after blood transfusion. Review of Systems: CONSTITUTIONAL: No malaise or change in sensation of wellbeing. ENMT: No rhinorrhea, otorrhea, sinus pain, ear ache. CARDIOVASCULAR: No angina, palpitations, orthopnea or paroxysmal dyspnea. RESPIRATORY: No SOB. GASTROINTESTINAL: No abdominal pain, nausea, vomiting, diarrhea, hematemesis, melena or change in the patient's habitual bowel movements consistency/number. GENITOURINARY: No dysuria, hematuria or change in bladder continence. MUSCULOSKELETAL: No new muscle pain or decrease in muscular strength. No new joint swelling, redness or tenderness. SKIN: No new rash. Past Medical History: ADDITIONAL PAST MEDICAL HISTORY: [Denies] SOCIAL HISTORY: [Negative for smoking, alcohol use, drug use] SURGICAL HISTORY: [EGD/colonoscopy] Coded Allergies: morphine (Unverified Allergy, Unknown, HIVES, 11/05/25) Physical Exam: GEN: Awake, alert, oriented in person, time and place, and in no acute distress. HEENT: No sinus tenderness. Tympanic membranes were not examined. No rhinorrhea. Oral pharyngeal mucosa is pink, moist and within normal limits. Neck is supple with no cervical lymphadenopathy, thyromegaly or JVD. CHEST: Inspection, palpation and percussion of the chest were unremarkable. Lung auscultation revealed normal breath sounds bilaterally. CARDIAC: PMI is within normal limits. Heart sounds are regular. Normal S1, S2. No gallop or murmur. ABD: Soft, non-tender and not distended. No peritoneal signs on palpation. No organomegaly. Normal bowel sounds. EXT: No cyanosis or clubbing. No edema. SKIN: Intact. No rashes. JOINTS: No evidence of synovitis or acute arthritis. NEURO: Alert and oriented to name, place and person. Cranial nerve examination is unremarkable. No focal motor deficits. Normal speech. Gait is normal. Strengt h is normal. Vital Sign (Last 24 Hours) 11/06/25 11/06/25 10:41 11:43 Temp 98.1 Pulse 59 Resp 16 B/P (MAP) 122/77 Pulse Ox 100 O2 Delivery Room Air O2 Flow Rate 0 FiO2 21 Intake & Output (last 24hrs) 11/05/25 11/05/25 11/06/25 15:00 23:00 07:00 Intake Total 300.0 ml Balance 300.0 ml Laboratory: [ ] Laboratory: Test 11/06/25 12:50 11/06/25 06:39 11/05/25 19:15 11/05/25 05:20 Range/Units Hemoglobin 8.8 L 12.0-16.0 g/dL Hematocrit 29.7 L 36-48 % White Blood Count 6.8 4.8-10.8 K/uL Red Blood Count 3.95 L 4.00-5.50 MIL/uL Mean Corpuscular Volume 73.2 L 79-99 fL Mean Corpuscular Hemoglobin 21.8 L 27.0-33.0 pg Mean Corpuscular Hemoglobin Concent 29.8 L 32.0-36.0 g/dL Red Cell Distribution Width 19.5 H 11.0-15.5 % Platelet Count 402 H 130-400 K/uL Mean Platelet Volume 9.0 7.5-10.5 fL Immature Granulocyte % (Auto) 0.3 0-1 % Neutrophils (%) (Auto) 60.4 40.0-77.0 % Lymphocytes (%) (Auto) 28.8 21.0-51.0 % Monocytes (%) (Auto) 8.8 3.0-13.0 % Eosinophils (%) (Auto) 1.3 0.0-8.0 % Basophils (%) (Auto) 0.4 0.0-5.0 % Neutrophils # (Auto) 4.1 1.8-7.7 K/uL Lymphocytes # (Auto) 2.0 1.0-4.8 K/uL Monocytes # (Auto) 0.6 0.1-1.0 K/uL Eosinophils # (Auto) 0.09 0.00-0.70 K/uL Basophils # (Auto) 0.03 0.00-0.20 K/uL Absolute Immature Granulocyte (auto 0.02 0-1 K/uL Nucleated Red Blood Cells 0.0 0.0-0.19 % Sodium Level 139 136-145 mmol/L Potassium Level 3.9 3.5-5.1 mmol/L Chloride Level 106 101-111 mmol/L Carbon Dioxide Level 26 21-32 mmol/L Blood Urea Nitrogen 6 L 7-18 mg/dL Creatinine 0.5 0.5-1.0 mg/dL Glomerular Filtration Rate Calc 116 >90 mL/min Random Glucose 86 70-105 mg/dL Total Calcium 8.0 L 8.5-10.1 mg/dL Magnesium Level 1.90 1.80-2.40 mg/dL Total Bilirubin 1.3 H 0.2-1.0 mg/dL Aspartate Amino Transf (AST/SGOT) 17 10-37 U/L Alanine Aminotransferase (ALT/SGPT) 13 12-78 U/L Alkaline Phosphatase 59 50-136 U/L Total Protein 6.6 6.0-8.3 g/dL Albumin 3.0 L 3.5-5.0 g/dL Stool Occult Blood POSITIVE H NEGATIVE Prothrombin Time 10.8 9.6-11.6 SEC Prothromb Time International Ratio 1.02 0.85-1.15 Activated Partial Thromboplast Time 23.1 L 26.3-35.5 SEC Phosphorus Level 3.1 2.5-4.9 mg/dL Iron Level 7 L 50-170 mcg/dL Total Iron Binding Capacity 455 H 250-450 mcg/dL Percent Iron Saturation 1.5 L 22-44 % Lactate Dehydrogenase 167 81-234 U/L Test 11/05/25 03:45 11/05/25 03:35 Range/Units Urine Color LIGHT-YELLOW YELLOW Urine Appearance CLOUDY H CLEAR Urine pH 6.5 5.0-8.0 Urine Specific [place] 1.021 1.001-1.031 Urine Protein 20 H NEGATIVE mg/dL Urine Glucose (UA) NEGATIVE NEGATIVE mg/dL Urine Ketones NEGATIVE NEGATIVE mg/dL Urine Occult Blood LARGE H NEGATIVE Urine Nitrate NEGATIVE NEGATIVE Urine Bilirubin NEGATIVE NEGATIVE mg/dL Urine Urobilinogen 0.2 0.2-1.0 mg/dL Urine Leukocyte Esterase 25 H NEGATIVE Varun/uL Urine RBC TNTC H 0-1 /HPF Urine WBC 6-10 H 0-1 /HPF Urine Squamous Epithelial Cells FEW 0-2 /HPF Urine Bacteria RARE None Seen /HPF Urine HCG, Qualitative NEGATIVE NEGATIVE Red Blood Cell Morphology See comments Reticulocyte Count (auto) 1.72304 0.42-2.23 % Immature Reticulocyte Fraction 26.90 H 0.18-0.48 % Lipase 36 16-77 U/L Current Medications Medications (Trade) Dose Ordered Sig/Shahrzad Route PRN Reason Start Time Stop Time Status Last Admin Dose Admin Acetaminophen (TYLenol 325MG TAB) 650 mg Q6H PRN PO TEMPERATURE GREATER THAN 101.5 11/05/25 06:00 12/05/25 05:59 Ceftriaxone Sodium (ROCEphine 1G INJ) 1 gm DAILY IV 11/06/25 09:00 11/16/25 08:59 11/06/25 10:28 1 GM Hydralazine HCl (APRESOLine 20MG INJ) 10 mg Q6H PRN IV For:SBP above 160;DBP above 90 11/05/25 06:00 12/05/25 05:59 Hydromorphone HCl (DiLAUDid 0.5MG INJ) 0.5 mg Q4H PRN IVP SEVERE PAIN (7-10) 11/05/25 09:00 11/10/25 08:59 Lactulose (Constulose 20gm/ 30ml Udcup) 20 gm BID PRN PO CONSTIPATION 11/05/25 06:00 12/05/25 05:59 Morphine Sulfate (morPHINE 4MG SYG) 4 mg Q4H PRN IVP MODERATE PAIN (4-6) 11/05/25 06:00 11/05/25 15:09 DC Ondansetron HCl (zoFRAN 4MG INJ) 4 mg Q6H PRN IV NAUSEA/VOMITING 11/05/25 06:00 12/05/25 05:59 Pantoprazole Sodium (PROTonix 40MG INJ) 40 mg BID IVP 11/05/25 21:00 12/05/25 20:59 11/06/25 10:28 40 MG Sodium Chloride 1,000 ml @ 100 mls/hr Q10H IV 11/05/25 06:00 12/05/25 05:59 11/06/25 04:04 100 MLS/HR Diagnostics / Radiology: [COPY/PASTE HERE IF NO REPORTS PLEASE DELETE SECTION] Assessment: Concern for GI bleed Hemorrhoids Acute blood loss anemia Plan: No plan for repeat egd/colon given stable hgb and no overt GI bleeding Patient to f/u with GI outpatient Continue GI prophylaxis Advance diet as tolerated Avoid NSAIDs Antireflux measures Monitor H&H and transfuse as needed Call with questions, concerns or change in clinical status Patient to follow-up at clinic post discharge Thank you for this consult JAIME CABRERA [facility] Nov 06, 2025 14:25
[2025-11-06 16:00] VITALS: BP 125/85; PULSE 67; RESP 16; TEMP 98
--- NOTE | 2025-11-06 16:21 | HMCIMG ---
EXAM: NM GI Bleeding Scan. CLINICAL HISTORY: nonbleeding ulcerated mucosa w stigmata of recent bleeding recent colonosco TECHNIQUE: Dynamic anterior images of the abdomen and pelvis were obtained during the time of radio-labeled autologous red blood cells. Images were acquired for 60 minutes. RADIOPHARMACEUTICAL: Tagged red blood cells COMPARISON: None provided. FINDINGS: STOMACH AND BOWEL: No focal area of abnormally increased radiotracer meet criteria for active GI bleeding. OTHER VISCERA: Physiologic activity in the liver, vasculature, and bladder noted. IMPRESSION: No active GI bleeding localized. /[place]
--- NOTE | 2025-11-06 16:58 | PN ---
This is a 45-year-old female with concerns of possible GI bleed Interval history: This 45-year-old female seen in her room resting Today patient has received no transfusions and hemoglobin 8.8 Bleed scan performed negative No other acute events reported no abdominal pain reported vitals stable Physical exam General: Awake alert and oriented Heart: Regular rate and rhythm} Lungs: Clear to auscultation no distress Abdomen: [Soft, nontender, nondistended Assessment : This is a 45-year-old female with severe anemia and concerns of GI bleed Plan: From surgical standpoint no further intervention likely needed Patient is likely to be cleared for discharge from primary team From surgical standpoint we will sig off case with no further intervention needed at this time Surgical case has been discussed with my supervising physician in the above plan was formulated and agreed upon We appreciate the hospitalist team for us to participate in patient's care. Greater than 45 minutes of time spent patient, reviewing chart, working on documentation Vitals/Labs Vital Signs Date Time Temp Pulse Resp B/P (MAP) Pulse Ox O2 Delivery O2 Flow Rate FiO2 11/06/25 16:00 98.1 67 16 125/85 97 Room Air 21 11/06/25 10:41 0 Laboratory Tests 11/05/25 20:08 11/05/25 23:31 11/06/25 06:39 11/06/25 12:50 Medications Current Medications Sodium Chloride 1,000 ml @ 0 mls/hr ONCE ONCE IV Last administered on 11/05/25at 03:30; Start 11/05/25 at 03:30; Stop 11/05/25 at 03:31; Status DC Ketorolac Tromethamine 30 mg ONCE ONCE IVP Last administered on 11/05/25at 03:30; Start 11/05/25 at 03:30; Stop 11/05/25 at 03:31; Status DC Ondansetron HCl 4 mg ONCE ONCE IVP Last administered on 11/05/25at 03:30; Start 11/05/25 at 03:30; Stop 11/05/25 at 03:31; Status DC Morphine Sulfate 4 mg ONCE ONCE IVP; Start 11/05/25 at 05:00; Stop 11/05/25 at 04:40; Status DC Pantoprazole Sodium 80 mg ONCE ONCE IVP Last administered on 11/05/25at 05:00; Start 11/05/25 at 05:00; Stop 11/05/25 at 05:01; Status DC Hydromorphone HCl 0.5 mg ONCE ONCE IVP Last administered on 11/05/25at 04:45; Start 11/05/25 at 05:00; Stop 11/05/25 at 05:01; Status DC Ceftriaxone Sodium 1 gm ONCE ONCE IVPB Last administered on 11/05/25at 05:24; Start 11/05/25 at 05:00; Stop 11/05/25 at 05:01; Status DC Sodium Chloride 1,000 ml @ 100 mls/hr Q10H IV Last administered on 11/06/25at 04:04; Start 11/05/25 at 06:00; Stop 12/05/25 at 05:59 Acetaminophen 650 mg Q6H PRN PO; Start 11/05/25 at 06:00; Stop 12/05/25 at 05:59 Hydralazine HCl 10 mg Q6H PRN IV; Start 11/05/25 at 06:00; Stop 12/05/25 at 05:59 Lactulose 20 gm BID PRN PO; Start 11/05/25 at 06:00; Stop 12/05/25 at 05:59 Morphine Sulfate 4 mg Q4H PRN IVP; Start 11/05/25 at 06:00; Stop 11/05/25 at 15:09; Status DC Ondansetron HCl 4 mg Q6H PRN IV; Start 11/05/25 at 06:00; Stop 12/05/25 at 05:59 Ceftriaxone Sodium 1 gm DAILY IV Last administered on 11/06/25at 10:28; Start 11/06/25 at 09:00; Stop 11/16/25 at 08:59 Hydromorphone HCl 0.5 mg Q4H PRN IVP; Start 11/05/25 at 09:00; Stop 11/10/25 at 08:59 Pantoprazole Sodium 40 mg BID IVP Last administered on 11/06/25at 10:28; Start 11/05/25 at 21:00; Stop 12/05/25 at 20:59 Lactulose 20 gm ONCE ONCE PO Last administered on 11/05/25at 12:33; Start 11/05/25 at 12:30; Stop 11/05/25 at 12:31; Status DC Hydromorphone HCl 0.2 mg ONCE ONCE IVP Last administered on 11/06/25at 00:22; Start 11/06/25 at 00:30; Stop 11/06/25 at 00:31; Status DC Iohexol 75 ml STK-MED ONCE IV; Start 11/06/25 at 06:06; Stop 11/06/25 at 06:06; Status DC TERRIE VALDEZ Jr. PAC Nov 06, 2025 16:58
--- NOTE | 2025-11-06 20:27 | NUR ---
@2000PM PATIENT AT THIS TIME DISCHARGED HOME. DISCHARGE PAPER WORK GIVEN. EDUCATED PATIENT ON NEW MEDICATIONS AND NEEDED FOLLOW UP APPOINTMENTS. RIGHT AC 18G IV CATHETER DISCONTINUED. PATIENT [id number], RESPIRATIONS EVEN AND UNLABORED. NO S/S OF DISTRESS. PATIENT EXITED FACI Addendum: 11/06/25 at 2032 by CAROLANN BETHEA RN RN OFFERED TO D/C PATIENT IN WHEELCHAIR, HOWEVER PATIENT REFUSED. STATED SHE WANTED TO EXIT BUILDING AMBULATING.
--- NOTE | 2025-11-07 08:41 | DS ---
Discharge Summary Hospital Course Summary: Date of service 11/06/2025 The patient admitted to the hospital 11/05/2025 with the following history of the present illness: Patient reports that she came to the emergency department with a chief complaint of abdominal pain. Onset is two days ago. Location is right lower quadrant. Duration is on and off. Character is described as sharp. There was no alleviating factors. Symptoms are aggravated after having a colonoscopy and EGD two days ago where she was diagnosed with hemorrhoids. Patient reports associated nausea and right flank pain. In the emergency department hemoglobin 6.5, hematocrit 22.7, chemistry unremarkable, urinalysis positive for leukocyte esterase and WBCs 6-10 per high-powered microscopy field. A CT scan ordered in the emergency department. Also no stool sample has been collected or sent to lab however there is high suspicion for GI bleed given anemia and recent EGD/colonoscopy. CT abdomen and pelvis reported as follows: IMPRESSION: Right mid-ureteral calculus measuring 0.65 x 0.4 x 0.5 cm with mild right hydroureteronephrosis. Tiny bilateral non-obstructive renal calculi/concretions. Hypodense lesions measuring 3.4 x 4.4 cm in the interpolar region of the right kidney and 1.6 x 1.1 cm in the lower pole of the left kidney, probably a cyst. suggested contrast CT /US correlation. Fecal loaded colon, predominantly on the right side. HOSPITAL COURSE 45-year-old female presented to the ED with right lower quadrant (RLQ) abdominal pain. She underwent elective colonoscopy and EGD last (11/03/25) at [facility] by Dr. Lester Duncan. She was asymptomatic immediately post-procedure and discharged home. Yesterday, she developed RLQ pain, prompting her ED visit. She reports intermittent pain, currently localized to the RLQ. No report of melena or hematochezia. She has a history of anemia; todays labs revealed significant drop in H/H to 6.5/22.7 (previously higher). She denies fevers, chills, or urinary symptoms. Review of EGD (11/03/25): - Duodenum: Normal - Z-line: Regular at GE junction - Stomach: Localized minimal erythema (non-erosive gastritis), bilious fluid in fundus/body - Cardia/fundus: Normal - Biopsies: Taken from areas of erythema - Impression: Non-erosive gastritis, otherwise normal exam - Recommendation: Await pathology, continue current medications Review of Colonoscopy (11/03/25): - Colon/Sigmoid: Continuous area of non-bleeding ulcerated mucosa with stigmata of recent bleeding; biopsied - Cecum: Localized mild inflammation (loss of vascularity, granularity, erythema); biopsied - Terminal ileum: Normal; biopsied - Random biopsies: Ascending, transverse, and ascending colon (normal-appearing mucosa) - Internal hemorrhoids: Medium-sized - Impression: Mucosal ulceration in colon/sigmoid (biopsied), mild colitis in cecum, internal hemorrhoids - Recommendation: Contact GI for emergencies, await pathology Objective: - Vitals: [Insert most recent vitals here] - General: Alert, in mild distress due to abdominal pain - Abdomen: Tenderness to RLQ, no rebound/guarding, no palpable masses - Labs: H/H 6.5/22.7 (downtrending, previously 5.6), other labs pending - Imaging: CT abdomen/pelvis notable for significant right-sided constipation, no free air or acute perforation - Received 2 units PRBC for anemia 11/06 patient remains admitted to the PCU, no acute events overnight, comfortably in bed, alert oriented x3, hemodynamically stable, afebrile, saturating normal on room air. Patient received 2 units of PRBC 11/05/2025, tolerated the procedure well. A dose of lactulose given, small amount of stool, she is passing gas, no nausea, no vomiting, no abdominal pain. Patient evaluated by urologist, input noted and appreciated, pending repeat CT of the abdomen and pelvis with IV contrast. We will continue to follow urology input and recommendation. Surgical input noted and appreciated, no surgical intervention required at this time. Pending GI input and recommendation. The patient has been seen as an outpatient by barber shop operator Dr. Wild for iron IV, we will request Hematology consult. If no further acute intervention required during this hospitalization likely the patient to be discharged home. Discussed with the patient, in agreement. GI INPUT NOTED AND APPRECIATED, NO PLAN FOR REPEAT EGD/COLONOSCOPY GIVEN STABLE HEMOGLOBIN AND NO OVERT GI BLEED. PATIENT TO FOLLOW UP WITH GI AN OUTPATIENT. SURGICAL INPUT NOTED AND APPRECIATED, FROM SURGICAL STANDPOINT NO FURTHER INTERVENTION LIKELY NEEDED. REPEAT CBC 2/50/25, HEMOGLOBIN 8.8, HEMATOCRIT 29.7, NO SIGNS OF ACTIVE BLEEDING. GI BLEEDING SCAN NO ACTIVE GI BLEEDING LOCALIZED. REPEAT CT ABDOMEN AND PELVIS WITH IV CONTRAST REVIEWED, DISCUSSED WITH THE PATIENT, REPORTED FOLLOWS: IMPRESSIONS: A 3.2 mm calculus in the right proximal ureter, mild right-sided hydronephrosis, and proximal hydroureter. Nonobstructive punctate 2 mm calculus in the left kidney interpolar calyx and bilateral kidneys' lower pole calyces. Bilateral renal cortical cysts, largest on the right kidney interpolar region measuring 4.0 x 3.8 cm. The appendix, terminal ileum, and ileocecal junction appear unremarkable. Small omental fat containing umbilical hernia (12 x 6 mm). Subtle inflammatory wall thickening in the sigmoid colon and scattered diverticulosis of the distal descending colon. Mild fatty infiltration of the liver. No obvious focal lesion. A lobulated 2.9 x 1.9 cm enhancing lesion on the superior aspect of the spleen, which on the noncontrast scan done the day before, appears hypodense to the spleen. Probable enhancing deposits. Optical Effects Line Up Person(s): GI SERVICES, GENERAL SURGERY, HEMATOLOGY AND UROLOGY SERVICES. Assessment/Plan: FINAL DIAGNOSIS 1. Acute on chronic anemia likely secondary to recent GI bleeding post- colonoscopy (ulcerated mucosa with stigmata of recent bleeding in colon/sigmoid). 2. RLQ abdominal pain post-procedural, likely related to mucosal ulceration /colitis; no evidence of perforation on CT. Appendicitis ruled out. 3. History of non-erosive gastritis per recent EGD. 4. Constipation per CT findings. 5. Internal hemorrhoids incidental, not actively bleeding. Discharge Instructions: The patient to be discharged home, to follow up with the GI as an outpatient, return to hospital if condition changes. Patient agreed with the plan and understood the information provided. Home Medications: Active Scripts Pantoprazole Sodium (Pantoprazole Sodium) 40 Mg Tablet.dr, 1 TAB PO DAILY for 30 Days, #30 TAB 1 Refill Prov:DARREN PETIT MD 11/06/25 Tamsulosin HCl (Flomax) 0.4 Mg Cap.er.24h, 0.4 MG PO DAILY for 30 Days, #45 CAPSULE. Prov:SUNITA FARLEY 12/29/22 Cephalexin Monohydrate (Keflex) 500 Mg Cap, 500 MG PO QID for 7 Days, #28 CAP Prov:SUNITA FARLEY 12/29/22 Time spent arranging discharge: 31-60 minutes DARREN PETIT MD Nov 07, 2025 08:41
--- NOTE | 2025-11-07 14:26 | CONS ---
HEMATOLOGY CONSULTATION HISTORY OF PRESENT ILLNESS: This is a female patient with history of lower GI bleeding secondary to hemorrhoids. The patient has been transfused in the past due to persistent anemia. She came at this time to the hospital with complaints of hematochezia after having a colonoscopy as a patient. The patient was transfused with 2 units of PRBC. She is feeling better. At this point, she denies any active bleeding. On the recent EGD, there was evidence of gastritis with no evidence of any active bleeding on colonoscopy. There is evidence of rectal ulceration with localized inflammation in the cecum and there is extensive internal hemorrhoids. The patient is also having abdominal pain. The patient is scheduled for a CT scan and GI bleeding scan. PHYSICAL EXAMINATION: VITAL SIGNS: Stable. Afebrile. GENERAL: The patient is alert, in no acute distress. HEART: Regular rate and rhythm. RESPIRATORY: Lungs with diminished breathing sounds at both bases. No crackles. ABDOMEN: Soft. No tenderness. Bowel sounds present. EXTREMITIES: No pedal edema. No calf tenderness. LABORATORY DATA: Reviewed. Hemoglobin 8.4. Normal platelets. ASSESSMENT: * Lower gastrointestinal bleeding. * Severe anemia. * History of hemorrhoids. * IV iron infusion allergies. PLAN: The patient remains stable after transfusion. I will follow the CT scan results. Continue to monitor with that work. Call on any IV iron infusion due to allergic reaction. TID: [id number] RECEIPT: [id number]
== END 2025-11-06 20:00 | disposition home or self-care (01) | DRG 812 ==
LOC: EDH 02:54 → EDHIP 05:46 → 3CH 07:20 → 2AH 13:15
PROVIDERS: ADMIT Internal Medicine; ATTEND Internal Medicine
PROC: 30233N1 Transfusion of Nonautologous Red Blood Cells into Peripheral Vein, Percutaneous Approach (ICD-10-PCS; principal; 2025-11-05)
DX: D62 Acute posthemorrhagic anemia (principal); N13.6 Pyonephrosis; K52.9 Noninfective gastroenteritis and colitis, unspecified; K42.9 Umbilical hernia without obstruction or gangrene; K59.00 Constipation, unspecified; K64.8 Other hemorrhoids
CPT/HCPCS: 36415; 36430; 71045; 74176; 74177; 78278; 80048; 80053; 81001; 81025; 82270; 83540; 83550; 83615; 83690; 83735; 84100; 85014; 85018; 85025; 85045; 85610; 85730; 86850; 86900; 86901; 86923; 87086; 93005; 96374; 96375; 99285; A9512; G0378; J0696; J1171; J1885; J2405; J2470; J7030; P9016; Q9967